=== PATIENT | male | born 1980 | race Caucasian/White ===

== ENCOUNTER 2016-10-10 21:31 | Emergency (ER) | payer MEDICAID ==
[2016-10-10 21:37] VITALS: BP 134/109; PULSE 82; RESP 16; TEMP 98.1; O2SAT 92
--- NOTE | 2016-10-10 21:50 | EDPHY ---
H & P Stated Complaint: intoxicated, elevated BGLs today (300s) HPI/ROS: HPI CHIEF COMPLAINT: Alcohol intoxication, possible high blood sugar HISTORY OF PRESENT ILLNESS: This patient 36-year-old male who presents emergency room by private vehicle with his girlfriend after was noted that he was highly intoxicated alcohol. She had a hard time waking him up. 911 was called EMS evaluated him and checked amount and advised him to go to the hospital by private vehicle as he was alert and oriented and, cooperative. In no acute medical distress. Patient presents here in emergency room states he is really know why here and he has no medical complaints. He is agreeable for blood draw to check his blood sugar and alcohol level he will be gently hydrated with IV fluids. Other than that he has no medical complaints specifically denies any generalized weakness nausea vomiting chest pain or shortness of breath, or abdominal pain. he tells me that he used to take long-acting insulin however when he does drink as much alcohol he does not need to take as much insulin he is not taking insulin a few days. Past Medical History: Alcoholism, diabetes (Not on any medication) Past Surgical History: Denies recent surgical history Social History: Daily alcohol use, alcoholism denies tobacco, marijuana or drugs, denies pills Family History: Noncontributory ROS REVIEW OF SYSTEMS: A comprehensive 10 point review of systems is otherwise negative aside from elements mentioned in the history of present illness. Exam Constitutional intoxicated with alcohol, smells of alcohol, appears well nontoxic, triage nursing summary reviewed, vital signs reviewed, awake/alert. Eyes normal conjunctivae and sclera, EOMI, PERRLA. HENT normal inspection, atraumatic, moist mucus membranes, no epistaxis, neck supple/ no meningismus, no raccoon eyes. Respiratory clear to auscultation bilaterally, normal breath sounds, no respiratory distress, no wheezing. Cardiovascular rate normal, regular rhythm, no murmur, no edema, distal pulses normal. Gastrointestinal soft, non-tender, no rebound, no guarding, normal bowel sounds, no distension, no pulsatile mass. Genitourinary no CVA tenderness. Musculoskeletal no midline vertebral tenderness, full range of motion, no calf swelling, no tenderness of extremities, no meningismus, good pulses, neurovascularly intact. Skin pink, warm, & dry, no rash, skin atraumatic. Neurologic intoxicated with alcohol, awake, alert and oriented x 3, AAOx3, moves all 4 extremities equally, motor intact, sensory intact, CN II-XII intact , normal cerebellar, normal vision, normal speech. Psychiatric normal mood/affect. Heme/Lymph/Immune no lymphadenopathy. Differential Diagnosis: Includes but is not limited to in a particular order acute alcohol intoxication, dehydration, electrolyte abnormality, hyperglycemia , DKA Medical Decision Making: Patient had an IV established patient received IV fluid bolus will check basic blood work including electrolytes and alcohol, will check blood sugar. Gently hydrate him with normal saline at this time. Re-evaluation: 2241: at this time this patient removed his IV himself he is bleeding around his IV site. Will place a dressing on this. He is requesting be discharged from the emergency room he states he does not get paperwork soon heel just walk out. He is clinically sober, he has a stable gait no ataxia, is not slurring his speech, he is here with his girlfriend will provide a safe ride home. His blood work is appropriate specifically he does not have any evidence of DKA or high blood sugar. Electrolytes are appropriate. His bicarb slightly low due to most likely alcohol. Source: Patient - Personal History Current Tetanus/Diphtheria Vaccine: Yes Current Tetanus Diphtheria and Acellular Pertussis (TDAP): Yes Tetanus Vaccine Date: 2013 - Medical/Surgical History Hx Asthma: No Hx Chronic Respiratory Disease: No Hx Diabetes: Yes Hx Cardiac Disease: No Hx Renal Disease: No Hx Cirrhosis: No Hx Alcoholism: Yes Hx HIV/AIDS: No Hx Splenectomy or Spleen Trauma: No Other PMH: neuopathy, anxiety, left toes amputated, ETOH, pancreatitis, diabetes - Social History Smoking Status: Never smoked Constitutional: Initial Vital Signs Temperature (C) 36.7 C 10/10/16 21:33 Heart Rate 82 10/10/16 21:33 Respiratory Rate 16 10/10/16 21:33 Blood Pressure 134/109 H 10/10/16 21:33 O2 Sat (%) 92 10/10/16 21:33 O2 Delivery Mode Room Air Allergies/Adverse Reactions: codeine Allergy (Mild, Verified 03/20/15 23:45) Itching Home Medications: Medication Instructions Recorded Insulin Detemir [Levemir] 12 unit SQ BID 07/08/16 LORazepam [Ativan (*)] 0.5 mg PO PRN PRN 07/08/16 Folic Acid [Folic Acid 1 MG (*)] 1 mg PO DAILY #30 tab 07/10/16 Hydroxyzine Pamoate [Vistaril] 25 - 50 mg PO Q8H PRN #30 capsule 07/10/16 Multivitamins [Multivitamin (*)] 1 each PO DAILY #30 tab 07/10/16 Sertraline HCl [Zoloft 25mg (*)] 25 mg PO DAILY #30 tab 07/10/16 Thiamine HCl [Vitamin B-1] 100 mg PO DAILY #30 tab 07/10/16 busPIRone [Buspar (*)] 5 mg PO TID #90 tab 07/10/16 Medical Decision Making - Data Points Laboratory Results: Laboratory Results 10/10/16 22:10 10/10/16 22:10 10/10/16 10/10/16 22:10 22:10 WBC 11.75 10^3/uL H 10^3/uL (3.80-9.50) RBC 4.59 10^6/uL 10^6/uL (4.40-6.38) Hgb 14.6 g/dL g/dL (13.7-17.5) Hct 41.5 % % (40.0-51.0) MCV 90.4 fL fL (81.5-99.8) MCH 31.8 pg pg (27.9-34.1) MCHC 35.2 g/dL g/dL (32.4-36.7) RDW 11.9 % % (11.5-15.2) Plt Count 316 10^3/uL 10^3/uL (150-400) MPV 9.3 fL fL (8.7-11.7) Neut % (Auto) 20.1 % L % (39.3-74.2) Lymph % (Auto) 69.5 % H % (15.0-45.0) Troup % (Auto) 6.4 % % (4.5-13.0) Eos % (Auto) 2.9 % % (0.6-7.6) Baso % (Auto) 0.8 % % (0.3-1.7) Nucleat RBC Rel Count 0.0 % % (0.0-0.2) Absolute Neuts (auto) 2.37 10^3/uL 10^3/uL (1.70-6.50) Absolute Lymphs (auto) 8.17 10^3/uL H 10^3/uL (1.00-3.00) Absolute Monos (auto) 0.75 10^3/uL 10^3/uL (0.30-0.80) Absolute Eos (auto) 0.34 10^3/uL 10^3/uL (0.03-0.40) Absolute Basos (auto) 0.09 10^3/uL 10^3/uL (0.02-0.10) Absolute Nucleated RBC 0.00 10^3/uL 10^3/uL (0-0.01) Immature Gran % 0.3 % % (0.0-1.1) Immature Gran # 0.03 10^3/uL 10^3/uL (0.00-0.10) Sodium 144 mEq/L mEq/L (134-144) Potassium 4.2 mEq/L mEq/L (3.5-5.2) Chloride 106 mEq/L mEq/L (97-110) Carbon Dioxide 21 mEq/l L mEq/l (22-31) Anion Gap 17 mEq/L H mEq/L (8-16) BUN 14 mg/dL mg/dL (7-23) Creatinine 0.8 mg/dL mg/dL (0.7-1.3) Estimated GFR > 60 Glucose 163 mg/dL H mg/dL (70-100) Calcium 9.0 mg/dL mg/dL (8.5-10.4) Ethyl Alcohol Pending Departure - Departure Disposition: Home, Routine, Self-Care Clinical Impression: Alcohol intoxication Qualifiers: Complication of substance-induced condition: uncomplicated Qualified Code(s): F10.120 - Alcohol abuse with intoxication, uncomplicated Condition: Good Instructions: Alcohol Intoxication (ED) Referrals: Naomi Rooney [Primary Care Provider] - As per Instructions
[2016-10-10] MEDS ORDERED: NS 1,000 ML IV ONE (21:54)
[2016-10-10 22:19] LABS: % IMMATURE GRANULYOCYTES 0.3 % (0.0-1.1); ABSOLUTE IMMATURE GRANULOCYTES 0.03 10^3/uL (0.00-0.10); ADD DIFF? NO; ADD MORPH? NO; ADD SCAN? YES; ATYPICAL LYMPHOCYTE FLAG 0 (0-99); FRAGMENT RBC FLAG 0 (0-99); HEMATOCRIT 41.5 % (40.0-51.0); HEMOGLOBIN 14.6 g/dL (13.7-17.5); LEFT SHIFT FLG 0 (0-99); LIPEMIA HEMOLYSIS FLAG 90 (0-99); MEAN CELL HEMOGLOBIN 31.8 pg (27.9-34.1); MEAN CELL HEMOGLOBIN CONCENTR. 35.2 g/dL (32.4-36.7); MEAN CELL VOLUME 90.4 fL (81.5-99.8); MEAN PLATELET VOLUME 9.3 fL (8.7-11.7); PLATELET CLUMPS FLAG 10 (0-99); PLATELET COUNT 316 10^3/uL (150-400); RED BLOOD CELL COUNT 4.59 10^6/uL (4.40-6.38); RED CELL DISTRIBUTION WIDTH 11.9 % (11.5-15.2)
[2016-10-10 22:34] LABS: ANION GAP 17 mEq/L (8-16); CARBON DIOXIDE 21 mEq/l (22-31); CHLORIDE 106 mEq/L (97-110); CREATININE 0.8 mg/dL (0.7-1.3); GLOMERULAR FILTRATION RATE > 60; GLUCOSE 163 mg/dL (70-100); POTASSIUM 4.2 mEq/L (3.5-5.2); SODIUM 144 mEq/L (134-144)
[2016-10-10 22:41] LABS: SCAN POSITIVE
[2016-10-10 22:45] LABS: PLATELET ESTIMATE ADEQUATE (ADEQ)
[2016-10-10 23:09] LABS: ETHANOL SERUM 352 mg/dL (0-10)
== END 2016-10-10 22:50 | disposition home or self-care (01) ==
DX: F10.120 Alcohol abuse with intoxication, uncomplicated (principal); E11.9 Type 2 diabetes mellitus without complications; Z79.4 Long term (current) use of insulin
CPT/HCPCS: G0480

== ENCOUNTER 2016-11-19 18:17 | Emergency (ER) | payer MEDICAID ==
[2016-11-19 18:28] VITALS: TEMP 98.2
--- NOTE | 2016-11-19 18:33 | EDPHY ---
H & P Time Seen by Provider: 11/19/16 18:18 HPI/ROS: Chief complaint. Decreased energy HPI. 36-year-old male here by EMS with decreased energy for 3 days. He generally feels weak and tired. He has diabetes but does not take any medication. He denies chest discomfort, shortness of breath, abdominal pain, fever, cough. He drinks alcohol every day and he has been drinking alcohol today. He was seen for similar symptoms in our emergency department several days ago ROS Constitutional. Generalized weakness Eyes. no problems with vision ENT. no sore throat, no nasal drainage Cardiovascular. no chest pain Respiratory. no shortness of breath, no cough Abdominal. no abdominal pain, no nausea/vomiting, no diarrhea . no problems urinating MS. no calf pain/swelling, no neck/back pain, no joint pain Skin. no rash Lymph. no swollen glands Neuro. no headache, no dizziness, no difficulty walking or with speech Past Medical/Surgical History: Diabetes and alcoholism Social History: Single, nonsmoker, recent alcohol Smoking Status: Never smoked Physical Exam: General Appearance: Alert well-developed male mild distress vital signs are stable Eyes: Pupils equal and round no pallor or injection. ENT, Mouth: Mucous membranes are moist. Respiratory: There are no retractions, lungs are clear to auscultation. Cardiovascular: Regular rate and rhythm. Gastrointestinal: Abdomen is soft and nontender, no masses, bowel sounds normal. Neurological: Awake and alert, sensory and motor exams grossly normal. Slight slurred speech Skin: Warm and dry, no rashes. Musculoskeletal: Neck is supple nontender. Extremities symmetrical, full range of motion. Psychiatric: Patient is oriented X 3, there is no agitation. Constitutional: Initial Vital Signs Temperature (C) 36.8 C 11/19/16 18:23 Heart Rate 86 11/19/16 18:23 Respiratory Rate 14 11/19/16 18:23 Blood Pressure 147/106 H 11/19/16 18:23 O2 Sat (%) 99 11/19/16 18:23 O2 Delivery Mode Room Air Allergies/Adverse Reactions: codeine Allergy (Mild, Verified 03/20/15 23:45) Itching Home Medications: Medication Instructions Recorded Insulin Detemir [Levemir] 12 unit SQ BID 07/08/16 LORazepam [Ativan (*)] 0.5 mg PO PRN PRN 07/08/16 Folic Acid [Folic Acid 1 MG (*)] 1 mg PO DAILY #30 tab 07/10/16 Hydroxyzine Pamoate [Vistaril] 25 - 50 mg PO Q8H PRN #30 capsule 07/10/16 Multivitamins [Multivitamin (*)] 1 each PO DAILY #30 tab 07/10/16 Sertraline HCl [Zoloft 25mg (*)] 25 mg PO DAILY #30 tab 07/10/16 Thiamine HCl [Vitamin B-1] 100 mg PO DAILY #30 tab 07/10/16 busPIRone [Buspar (*)] 5 mg PO TID #90 tab 07/10/16 Medical Decision Making Procedures: IV normal saline, monitor ED Course/Re-evaluation: On re-evaluation patient is stable. However now he complains of epigastric pain and said his pancreas is inflamed. Patient has a blood alcohol of 412. Lipase is ordered Patient's lipase is normal. Patient is asking for Percocet on re-evaluation. I explained the patient's blood alcohol is quite high and he will not be treated with pain medication especially since his lipase is normal. The patient is unable to find a sober ride to come pick him up. He will be sent to the alcohol recovery [facility] . Differential Diagnosis: I consider complications of diabetes, pancreatitis, DKA. It would appear the symptoms are all due to alcohol - Data Points Laboratory Results: Laboratory Results 11/19/16 19:40 11/19/16 19:10 11/19/16 11/19/16 11/19/16 21:20 19:40 19:40 WBC REJ RBC Not Reported Hgb Not Reported Hct Not Reported MCV Not Reported MCH Not Reported MCHC Not Reported RDW Not Reported Plt Count Not Reported MPV Not Reported Neut % (Auto) Not Reported Lymph % (Auto) Not Reported Mcdonald % (Auto) Not Reported Eos % (Auto) Not Reported Baso % (Auto) Not Reported Nucleat RBC Rel Count Not Reported Absolute Neuts (auto) Not Reported Absolute Lymphs (auto) Not Reported Absolute Monos (auto) Not Reported Absolute Eos (auto) Not Reported Absolute Basos (auto) Not Reported Absolute Nucleated RBC Not Reported Immature Gran % Not Reported Immature Gran # Not Reported Sodium Potassium Chloride Carbon Dioxide Anion Gap BUN Creatinine Estimated GFR Glucose Calcium Lipase 164.0 IU/L IU/L (23-300) Urine Opiates Screen Pending Acetaminophen Urine Barbiturates Pending Ur Phencyclidine Scrn Pending Ur Amphetamine Screen Pending U Benzodiazepines Scrn Pending Urine Cocaine Screen Pending U Marijuana (THC) Screen Pending Ethyl Alcohol 11/19/16 11/19/16 19:10 19:10 WBC REJ RBC REJ Hgb REJ Hct REJ MCV REJ MCH REJ MCHC REJ RDW REJ Plt Count REJ MPV REJ Neut % (Auto) REJ Lymph % (Auto) REJ Mcdonald % (Auto) REJ Eos % (Auto) REJ Baso % (Auto) REJ Nucleat RBC Rel Count REJ Absolute Neuts (auto) REJ Absolute Lymphs (auto) REJ Absolute Monos (auto) REJ Absolute Eos (auto) REJ Absolute Basos (auto) REJ Absolute Nucleated RBC REJ Immature Gran % REJ Immature Gran # REJ Sodium 139 mEq/L mEq/L (134-144) Potassium 3.8 mEq/L mEq/L (3.5-5.2) Chloride 97 mEq/L mEq/L (97-110) Carbon Dioxide 18 mEq/l L mEq/l (22-31) Anion Gap 24 mEq/L H mEq/L (8-16) BUN 12 mg/dL mg/dL (7-23) Creatinine 0.7 mg/dL mg/dL (0.7-1.3) Estimated GFR > 60 Glucose 151 mg/dL H mg/dL (70-100) Calcium 8.5 mg/dL mg/dL (8.5-10.4) Lipase Urine Opiates Screen Acetaminophen < 10 mcg/mL L mcg/mL (10.0-30.0) Urine Barbiturates Ur Phencyclidine Scrn Ur Amphetamine Screen U Benzodiazepines Scrn Urine Cocaine Screen U Marijuana (THC) Screen Ethyl Alcohol 412 mg/dL H* mg/dL (0-10) Departure - Departure Disposition: Home, Routine, Self-Care Condition: Fair Instructions: Abuse of Alcohol (ED) Additional Instructions: Consider alcohol counseling. Drink responsibly. Return for worsening symptoms. Referrals: Patient,NotPresent [Unknown] - As per Instructions [facility] [Outside] - 2-3 days without fail
[2016-11-19 19:36] LABS: ANION GAP 24 mEq/L (8-16); CALCIUM 8.5 mg/dL (8.5-10.4); CARBON DIOXIDE 18 mEq/l (22-31); CHLORIDE 97 mEq/L (97-110); CREATININE 0.7 mg/dL (0.7-1.3); GLOMERULAR FILTRATION RATE > 60; GLUCOSE 151 mg/dL (70-100); POTASSIUM 3.8 mEq/L (3.5-5.2); SODIUM 139 mEq/L (134-144)
[2016-11-19 19:55] LABS: ETHANOL SERUM 412 mg/dL (0-10)
[2016-11-19 20:36] LABS: ADD MORPH? NO; ATYPICAL LYMPHOCYTE FLAG 10 (0-99); FRAGMENT RBC FLAG 0 (0-99); LEFT SHIFT FLG 0 (0-99); LIPEMIA HEMOLYSIS FLAG 90 (0-99)
[2016-11-19 20:38] LABS: PLATELET CLUMPS FLAG 230 (0-99)
[2016-11-19 21:12] VITALS: BP 127/89; PULSE 95; RESP 16; O2SAT 92
== END 2016-11-19 21:35 | disposition home or self-care (01) ==
LOC: EDUNIT#
DX: F10.129 Alcohol abuse with intoxication, unspecified (principal); E11.9 Type 2 diabetes mellitus without complications; Z79.4 Long term (current) use of insulin
CPT/HCPCS: 80305; G0480

== ENCOUNTER 2016-11-21 07:26 | Emergency (ER) | payer MEDICAID ==
[2016-11-21] MEDS ORDERED: LORazepam 2 MG/ML INJ IVP ONE (07:34)
--- NOTE | 2016-11-21 07:36 | EDPHY ---
H & P Time Seen by Provider: 11/21/16 07:31 HPI/ROS: CHIEF COMPLAINT: Withdrawal HISTORY OF PRESENT ILLNESS: Patient is a 36-year-old alcoholic man who comes to the emergency department via EMS complaining of alcohol withdrawals. He states that he has been 5 days since his last drink. He typically drinks large amounts of vodka daily. He denies, ingestants. Paramedics found him tachycardic tremulous and hypertensive. They administered 2.5 mg of Versed. He is improved to some degree. No vomiting. He denies diarrhea. Denies recent fevers or illness. Denies recent trauma. REVIEW OF SYSTEMS: Constitutional: See HPI EENTM: denies: blurred vision, double vision, nose congestion Respiratory: denies: cough, shortness of breath Cardiac: denies: chest pain, irregular heart rate, lightheadedness, palpitations Gastrointestinal/Abdominal: denies: abdominal pain, diarrhea, nausea, vomiting, blood streaked stools Genitourinary: denies: dysuria, frequency, hematuria, pain Musculoskeletal: denies: joint pain, muscle pain Skin: denies: lesions, rash, jaundice, bruising Neurological: denies: headache, numbness, paresthesia, tingling, dizziness, weakness Hematologic/Lymphatic: denies: blood clots, easy bleeding, easy bruising Immunologic/allergic: denies: HIV/AIDS, transplant EXAM: GENERAL: Foul-smelling, tremulous, disheveled HEAD: Atraumatic, normocephalic. EYES: Pupils equal round and reactive to light, extraocular movements intact, sclera anicteric, conjunctiva are normal. ENT: TMs normal, nares patent, oropharynx clear without exudates. Moist mucous membranes. NECK: Normal range of motion, supple without lymphadenopathy or JVD. LUNGS: Breath sounds clear to auscultation bilaterally and equal. No wheezes rales or rhonchi. HEART: Regular rate and rhythm without murmurs, rubs or gallops. ABDOMEN: Soft, nontender, normoactive bowel sounds. No guarding, no rebound. No masses appreciated. BACK: No CVA tenderness, no spinal tenderness, step-offs or deformities EXTREMITIES: Normal range of motion, no pitting or edema. No clubbing or cyanosis. NEUROLOGICAL: tremulous,Cranial nerves II through XII grossly intact. Normal speech, normal gait. 5/5 strength, normal movement in all extremities, normal sensation PSYCH: Normal mood, normal affect. SKIN: Warm, dry, normal turgor, no visible rashes or lesions. Source: Patient Exam Limitations: No limitations - Personal History Tetanus Vaccine Date: 2013 - Medical/Surgical History Hx Asthma: No Hx Chronic Respiratory Disease: No Hx Diabetes: Yes Hx Cardiac Disease: No Hx Renal Disease: No Hx Cirrhosis: No Hx Alcoholism: Yes Hx HIV/AIDS: No Hx Splenectomy or Spleen Trauma: No Other PMH: neuopathy, anxiety, left toes amputated, ETOH, pancreatitis, diabetes - Family History Significant Family History: No pertinent family hx - Social History Smoking Status: Never smoked Alcohol Use: Heavy Drug Use: Marijuana Constitutional: Initial Vital Signs Temperature (C) 36.6 C 11/21/16 07:37 Heart Rate 107 H 11/21/16 07:37 Respiratory Rate 22 H 11/21/16 07:37 Blood Pressure 122/62 H 11/21/16 07:37 O2 Sat (%) 93 11/21/16 07:37 O2 Delivery Mode Room Air Allergies/Adverse Reactions: codeine Allergy (Mild, Verified 03/20/15 23:45) Itching Home Medications: Medication Instructions Recorded Insulin Detemir [Levemir] 12 unit SQ BID 07/08/16 LORazepam [Ativan (*)] 0.5 mg PO PRN PRN 07/08/16 Folic Acid [Folic Acid 1 MG (*)] 1 mg PO DAILY #30 tab 07/10/16 Hydroxyzine Pamoate [Vistaril] 25 - 50 mg PO Q8H PRN #30 capsule 07/10/16 Multivitamins [Multivitamin (*)] 1 each PO DAILY #30 tab 07/10/16 Sertraline HCl [Zoloft 25mg (*)] 25 mg PO DAILY #30 tab 07/10/16 Thiamine HCl [Vitamin B-1] 100 mg PO DAILY #30 tab 07/10/16 busPIRone [Buspar (*)] 5 mg PO TID #90 tab 07/10/16 Medical Decision Making ED Course/Re-evaluation: I reviewed the patient's medical record. He was here 2 days ago with an alcohol greater than 400 complaining of fatigue and lethargy. 8:15 a.m. the patient is somnolecent. He is saturating well and is not tachycardic or hypertensive. He is sedated and difficult to arouse. We will continue to observe. Will prepare for transfer to the alcohol recovery Center when more awake. 9:00 a.m. the patient is awake and alert. No tremulousness. Normal vital signs. We will transfer to the alcohol recovery Center on a Librium protocol. Differential Diagnosis: Partial list of the Differential diagnosis considered include but were not limited to; alcohol withdrawal, anxiety, substance abuse and although unlikely based on the history and physical exam, I also considered head injury, infection. - Data Points Medications Given: Discontinued Medications Chlordiazepoxide (Librium 25 Mg Prepack#6) 1 btl TAKEHOME EDNOW ONE Stop: 11/21/16 08:59 Last Admin: 11/21/16 09:09 Dose: 1 btl Lorazepam (Ativan Injection) 2 mg IVP EDNOW ONE Stop: 11/21/16 07:35 Last Admin: 11/21/16 07:47 Dose: 2 mg Departure - Departure Disposition: Home, Routine, Self-Care Clinical Impression: Alcohol dependence Qualifiers: Substance use status: in withdrawal Complication of substance-induced condition : with unspecified complication Qualified Code(s): F10.239 - Alcohol dependence with withdrawal, unspecified Condition: Fair Instructions: Alcohol Withdrawal (ED) Referrals: Patient,NotPresent [Unknown] - As per Instructions Esthela Bragg MD [Medical Doctor] - As per Instructions
[2016-11-21] MEDS ORDERED: CHLORDIAZEPOXIDE 25MG PREPK#6 BTL TAKEHOME ONE (08:58)
[2016-11-21 09:19] VITALS: BP 122/88; PULSE 86; RESP 18; TEMP 97.7; O2SAT 98
== END 2016-11-21 10:00 | disposition home or self-care (01) ==
LOC: EDUNIT#
DX: F10.239 Alcohol dependence with withdrawal, unspecified (principal); E11.9 Type 2 diabetes mellitus without complications; Z79.4 Long term (current) use of insulin
CPT/HCPCS: 96374; J2060

== ENCOUNTER 2016-11-27 20:04 | Emergency (ER) | payer MEDICAID ==
[2016-11-27 20:09] VITALS: BP 145/88; PULSE 89; RESP 20; TEMP 98.6; O2SAT 95
[2016-11-27] MEDS ORDERED: AMOXICILLIN/CLAVULANATE POT 875/125 MG TAB PO ONE (21:00)
[2016-11-27] MEDS ORDERED: IBUPROFEN 600 MG TAB PO ONE (21:01)
--- NOTE | 2016-11-27 21:01 | EDPHY ---
General Narrative: CHIEF COMPLAINT: Dental pain, concerned about infection HISTORY OF PRESENT ILLNESS: Patient complains of 2-3 days history of right- sided dental pain involving teeth numbers 2 and 3. Gradual onset. Constant duration. Auot-mr-scctuzgz pain. Worse with chewing. Improves at rest. He felt an area of fluctuance that he popped with a needle at home. He said this improved the area. He has had no fever or chills but does have ongoing pain and warmth to the right cheek. No difficulty swallowing or breathing. No soreness of the throat. No shortness of the floor of the mouth. No difficulty opening or closing his mouth. Up-to-date on his tetanus. No other associated complaints or modifying factors. He has contacted his dentist and has an appointment tomorrow. REVIEW OF SYSTEMS: Ten systems reviewed and are negative unless otherwise noted in the HPI EXAMINATION General Appearance: Alert, no distress Head: normocephalic, atraumatic Eyes: Pupils equal and round, no conjunctival pallor or injection ENT, Mouth: Mucous membranes moist. Uvula midline. No erythema or edema. No palpable fluctuance or abscess. No abnormality of the posterior pharynx. No abnormality of the floor of the mouth. No trismus. Neck: Normal inspection, supple, non-tender Respiratory: No retractions or distress. Cardiovascular: Symmetric distal pulses. Skin: Warm and dry, no rash. No erythema or warmth over the face or neck. Extremities: Nontender, no pedal edema Psychiatric: Mood and affect normal DIFFERENTIAL DIAGNOSES: Including but not limited to dental abscess, pulpitis, mucositis, infection MDM: 8:59 p.m. Dental pain of tooth 1. This is 2 days duration. No fever or chills. No evidence of abscess by examination. There is a mild pulpitis. No abnormality of the pharynx or floor of the mouth. He has declined a dental block. I will provide antibiotics for him as his primary concern is infection. He is discharged home, and he will call his dentist tomorrow Dr. Sexton. He is to follow up there or with the dental emergency center tomorrow should his pain worsen. SUPERVISION: This patient was independently evaluated without direct examination by the attending physician. Case was discussed with attending physician. - History Smoking Status: Never smoked - Objective Vital Signs: Initial Vital Signs Temperature (C) 98.6 F 11/27/16 20:07 Heart Rate 89 11/27/16 20:07 Respiratory Rate 20 11/27/16 20:07 Blood Pressure 145/88 H 11/27/16 20:07 O2 Sat (%) 95 11/27/16 20:07 O2 Delivery Mode Room Air Allergies/Adverse Reactions: codeine Allergy (Mild, Verified 11/27/16 20:06) Itching Home Medications: Medication Instructions Recorded Insulin Detemir [Levemir] 12 unit SQ BID 07/08/16 LORazepam [Ativan (*)] 0.5 mg PO PRN PRN 07/08/16 Folic Acid [Folic Acid 1 MG (*)] 1 mg PO DAILY #30 tab 07/10/16 Hydroxyzine Pamoate [Vistaril] 25 - 50 mg PO Q8H PRN #30 capsule 07/10/16 Multivitamins [Multivitamin (*)] 1 each PO DAILY #30 tab 07/10/16 Sertraline HCl [Zoloft 25mg (*)] 25 mg PO DAILY #30 tab 07/10/16 Thiamine HCl [Vitamin B-1] 100 mg PO DAILY #30 tab 07/10/16 busPIRone [Buspar (*)] 5 mg PO TID #90 tab 07/10/16 Amoxicillin/Clavulanate Pot 875 mg PO BID #20 tab 11/27/16 [Augmentin 875 MG TAB (*)] Departure - Departure Disposition: Home, Routine, Self-Care Clinical Impression: Pain, dental, Pulpitis Condition: Good Instructions: Dental Caries (ED), Toothache (ED) Additional Instructions: Follow-up with her established dentist tomorrow. Referrals: Maggie Lopez PA [Primary Care Provider] - As per Instructions Prescriptions: Amoxicillin/Clavulanate Pot [Augmentin 875 MG TAB (*)] 875 mg PO BID #20 tab
== END 2016-11-27 21:18 | disposition home or self-care (01) ==
DX: K08.89 Other specified disorders of teeth and supporting structures (principal); K04.01 Reversible pulpitis

== ENCOUNTER 2017-05-01 09:07 | Emergency (ER) | payer MEDICAID ==
[~2017-05-01 09:07] MED LIST: CEPHALEXIN 500 MG CAP PO SCH; SULFAMETHOX/TMP 800/160 MG 1 TAB PO SCH
[2017-05-01 09:22] VITALS: BP 135/99; PULSE 69; RESP 16; TEMP 97.9; O2SAT 97
--- NOTE | 2017-05-01 11:23 | EDPHY ---
H & P Time Seen by Provider: 05/01/17 10:31 HPI/ROS: CHIEF COMPLAINT: Abscess right forearm HISTORY OF PRESENT ILLNESS: 36-year-old male presents to the emergency department with an abscess to his right forearm. Patient denies any known trauma or injury. He thinks that he may have been bit by a spider. He denies IV drug abuse. His symptoms have been present for nearly 1 week. ROS: He denies substance abuse, pain in his right axilla, fever, lymphangitis. Past Medical/Surgical History: Alcoholism, sober x8 months Social History: Homeless Smoking Status: Never smoked Physical Exam: On examination patient has a large fluctuant abscess noted to the dorsal, medial aspect of his left forearm. No evidence of retained foreign body. No palpable bony tenderness. There is some surrounding redness although no lymphangitis. No left axillary lymphadenopathy. Constitutional: Initial Vital Signs Temperature (C) 36.6 C 05/01/17 09:20 Heart Rate 69 05/01/17 09:20 Respiratory Rate 16 05/01/17 09:20 Blood Pressure 135/99 H 05/01/17 09:20 O2 Sat (%) 97 05/01/17 09:20 O2 Delivery Mode Room Air Allergies/Adverse Reactions: codeine Allergy (Mild, Verified 05/01/17 09:23) Itching Home Medications: Medication Instructions Recorded Insulin Detemir [Levemir] 12 unit SQ BID 07/08/16 Cephalexin [Keflex] 500 mg PO QID #28 cap 05/01/17 Sulfamethox/Tmp 800/160 mg 1 tab PO BID #14 tab 05/01/17 [Bactrim DS] MDM/Departure - MDM Procedures: Procedure: Abscess drainage. The patient's abscess was located on the left forearm. Risks, benefits, alternatives discussed with the patient and consent obtained. The abscess was incised with a #11 blade and large amount of purulent drainage was expressed. The patient tolerated the procedure well. The procedure was performed by myself. ED Course/Re-evaluation: 36-year-old male presents with abscess to the left forearm. The abscess was incised and drained, see procedure note. He was started on Keflex and Bactrim and this was filled through the [facility]. I do not think IV antibiotics are indicated. I do not think the patient needs admission to the hospital. He declined packing and would rather try to shower and tried to soak the wound. He was given wound care precautions. He will return if he develops fever, lymphangitis, axillary lymphadenopathy, or any other concerns. - Depart Disposition: Home, Routine, Self-Care Clinical Impression: Abscess of right forearm Condition: Good Instructions: Abscess (ED) Additional Instructions: Keflex and Bactrim as directed for 1 week. Warm compresses as discussed. Apply antibiotic ointment to wound after soaking in warm water. Return to the emergency department if you developed recurring pain, swelling, fever, red streaking up your arm, pain in her right armpit, or if you feel worse in any way. Prescriptions: Cephalexin [Keflex] 500 mg PO QID #28 cap Sulfamethox/Tmp 800/160 mg [Bactrim DS] 1 tab PO BID #14 tab Referrals: Maggie Lopez PA [Primary Care Provider] - 1-2 days without fail
== END 2017-05-01 12:17 | disposition home or self-care (01) ==
PROC: 0H9DXZZ Drainage of Right Lower Arm Skin, External Approach (ICD-10-PCS; principal; 2017-05-01)
DX: L02.413 Cutaneous abscess of right upper limb (principal)

== ENCOUNTER 2017-06-09 11:40 | Inpatient (IN) | payer MEDICAID ==
--- NOTE | 2017-06-09 11:51 | EDPHY ---
H & P HPI/ROS: HPI CHIEF COMPLAINT: Nausea, vomiting, anxiety, alcohol withdrawal HISTORY OF PRESENT ILLNESS: Patient very pleasant 36-year-old male, significant past medical history for homelessness and daily alcohol use. Last drink was this morning. He presents emergency room with nausea vomiting epigastric pain chest pain and feeling he is going through withdrawals. Feels very anxious. Additionally he is diabetic. He is unsure about his blood sugar. Main complaint is alcohol withdrawal. Past Medical History: Alcoholism, alcohol withdrawal, anxiety, homelessness, diabetes Past Surgical History: Foot surgery. Social History: Homeless, daily alcohol use. Family History: Noncontributory ROS REVIEW OF SYSTEMS: A comprehensive 10 point review of systems is otherwise negative aside from elements mentioned in the history of present illness. Exam Constitutional appears unkept, triage nursing summary reviewed, vital signs reviewed, awake/alert. Eyes normal conjunctivae and sclera, EOMI, PERRLA. HENT normal inspection, atraumatic, moist mucus membranes, no epistaxis, neck supple/ no meningismus, no raccoon eyes. Respiratory clear to auscultation bilaterally, normal breath sounds, no respiratory distress, no wheezing. Cardiovascular rate normal, regular rhythm, no murmur, no edema, distal pulses normal. Gastrointestinal soft, non-tender, no rebound, no guarding, normal bowel sounds, no distension, no pulsatile mass. Genitourinary no CVA tenderness. Musculoskeletal no midline vertebral tenderness, full range of motion, no calf swelling, no tenderness of extremities, no meningismus, good pulses, neurovascularly intact. Skin pink, warm, & dry, no rash, skin atraumatic. Neurologic awake, alert and oriented x 3, AAOx3, moves all 4 extremities equally, motor intact, sensory intact, CN II-XII intact, normal cerebellar, normal vision, normal speech. Psychiatric normal mood/affect. Heme/Lymph/Immune no lymphadenopathy. Differential Diagnosis: Includes but is not limited to in a particular order acute alcohol withdrawal, dehydration, electrolyte disturbance, DKA, renal failure, anxiety. Medical Decision Making: Plan for this patient IV establishment IV fluid bolus , IV Ativan 1 mg for acute anxiety. EKG, chest x-ray, electrolytes. Check alcohol level. Re-evaluation: EKG interpretation by me on record in [facility] system. Impression time of EKG 12:03 p.m.. Sinus rhythm rate of 98. No acute ischemic changes appreciated. Unremarkable EKG. 1318: Patient's chest x-ray one view reviewed. No acute cardiopulmonary disease. 1319: This patient is blood work shows DKA. High anion gap. Low bicarb. Blood sugar over 350. Patient be started on insulin drip. He has been fluid resuscitated with 2 L at this time. Plan is for ICU admission for DKA. 1331: Patient here in DKA. Patient need to be admitted to the ICU. I have ordered an insulin drip. Patient has already received 2 L of fluid. DKA is indicated by low bicarb and anion gap over 38. Blood sugar 355. Patient has been aggressively fluid resuscitated. Patient be admitted ICU for DKA. Additionally he will need to be watch for significant alcohol withdrawal. Hospitalist service updated. Dr. Melecio Miller to admit this patient. Critical Care: Total Critical Care Time Spent Managing this Patient: 65 Minutes. This time was spent Exclusively with this patient. This Care was exclusive of procedures. The Organ System/life at risk was DKA This Patient was in Critical Condition because diabetic ketoacidosis. Source: Patient, EMS - Personal History Tetanus Vaccine Date: 2013 - Medical/Surgical History Hx Asthma: No Hx Chronic Respiratory Disease: No Hx Diabetes: Yes Hx Cardiac Disease: No Hx Renal Disease: No Hx Cirrhosis: No Hx Alcoholism: Yes Hx HIV/AIDS: No Hx Splenectomy or Spleen Trauma: No Other PMH: neuopathy, anxiety, left toes amputated, ETOH, pancreatitis, diabetes - Social History Smoking Status: Never smoked Constitutional: Initial Vital Signs Temperature (C) 37 C 06/09/17 12:05 Heart Rate 105 H 06/09/17 12:05 Respiratory Rate 22 H 06/09/17 12:05 Blood Pressure 145/98 H 06/09/17 12:05 O2 Sat (%) 93 06/09/17 12:05 O2 Delivery Mode Room Air Allergies/Adverse Reactions: codeine Allergy (Mild, Verified 05/01/17 09:23) Itching Home Medications: Medication Instructions Recorded Insulin Detemir [Levemir] 18 unit SQ BID 07/08/16 Insulin Aspart [Novolog Flexpen] 0 unit SQ DAILY@12 06/09/17 Medical Decision Making - Data Points Laboratory Results: Laboratory Results 06/09/17 12:00 06/09/17 12:00 Medications Given: Chlordiazepoxide HCl (Librium) 25 mg PO TID KAYLEIGH Stop: 12/06/17 15:59 Last Admin: 06/10/17 08:49 Dose: 25 mg Enoxaparin Sodium (Lovenox) 40 mg SC DAILY KAYLEIGH Stop: 12/07/17 08:59 Last Admin: 06/10/17 08:49 Dose: 40 mg Insulin Human Regular 100 unit / Miscellaneous Medication 1 ea/ Sodium Chloride 101 mls @ 3 mls/hr IV EDNOW ONE PRN Reason: Protocol Stop: 06/10/17 22:56 Last Admin: 06/09/17 13:57 Dose: 101 mls Dextrose (D10w) 250 mls @ 0 mls/hr IV PRN PRN; Protocol; Wide Open PRN Reason: Hypoglycemia Stop: 12/06/17 15:59 Last Admin: 06/10/17 04:34 Dose: 250 mls Dextrose/Sodium Chloride (D5w Ns) 1,000 mls @ 150 mls/hr IV CONT KAYLEIGH Stop: 12/06/17 15:59 Last Admin: 06/10/17 05:48 Dose: 1,000 mls Pantoprazole Sodium 40 mg/ (Sodium Chloride) 100 mls @ 200 mls/hr IV DAILY KAYLEIGH Stop: 12/06/17 15:59 Last Admin: 06/10/17 08:49 Dose: 100 mls Potassium Chloride (Potassium Cl 10 Meq (Premix)) 100 mls @ 100 mls/hr IV Q1H KAYLEIGH Stop: 06/10/17 10:14 Last Admin: 06/10/17 10:03 Dose: 100 mls Insulin Glargine (Lantus Syringe) 18 units SC BID KAYLEIGH Stop: 12/07/17 09:14 Last Admin: 06/10/17 09:44 Dose: 18 units Lorazepam (Ativan Injection) 0.5 - 3 mg IVP Q30M PRN PRN Reason: CIWA-Ar score greater than 15 Stop: 12/06/17 13:46 Last Admin: 06/10/17 05:15 Dose: 2 mg Sucralfate (Carafate Suspension) 1 gm PO ACHS KAYLEIGH Stop: 12/06/17 17:29 Last Admin: 06/10/17 08:49 Dose: 1 gm Discontinued Medications Sodium Chloride (Ns) 1,000 mls @ 0 mls/hr IV EDNOW ONE; Wide Open PRN Reason: Protocol Stop: 06/09/17 11:54 Last Admin: 06/09/17 11:53 Dose: 1,000 mls Sodium Chloride (Ns) 1,000 mls @ 0 mls/hr IV ONCE ONE PRN Reason: Wide Open Stop: 06/09/17 12:07 Last Admin: 06/09/17 12:19 Dose: 1,000 mls Potassium Chloride (Potassium Cl 10 Meq (Premix)) 100 mls @ 100 mls/hr IV Q1H KAYLEIGH Stop: 06/09/17 22:14 Last Admin: 06/09/17 21:33 Dose: 100 mls Magnesium Sulfate (Magnesium Sulf 2 Gm (Premix)) 50 mls @ 50 mls/hr IV ONCE ONE Stop: 06/09/17 20:48 Last Admin: 06/09/17 22:01 Dose: 50 mls Potassium Chloride (Potassium Cl 10 Meq (Premix)) 100 mls @ 100 mls/hr IV Q1H [facility]END[facility] TO [facility] Stop: 06/10/17 05:14 Last Admin: 06/10/17 03:17 Dose: 100 mls Influenza Virus Vaccine Quadrival (Fluarix Quad [id number]) 0.5 ml IM .ONCE ONE Stop: 06/10/17 09:12 Last Admin: 06/10/17 09:39 Dose: 0.5 ml Lorazepam (Ativan Injection) 1 mg IVP EDNOW ONE Stop: 06/09/17 11:54 Last Admin: 06/09/17 12:14 Dose: 1 mg Lorazepam (Ativan Injection) 1 mg IVP EDNOW ONE Stop: 06/09/17 13:36 Last Admin: 06/09/17 13:57 Dose: 1 mg Ondansetron HCl (Zofran) 4 mg IVP EDNOW ONE Stop: 06/09/17 11:54 Last Admin: 06/09/17 12:14 Dose: 4 mg Departure - Departure Disposition: [facility] Acute Clinical Impression: DKA (diabetic ketoacidoses) Qualifiers: Diabetes mellitus type: type 1 Diabetes mellitus complication detail: without coma Qualified Code(s): E10.10 - Type 1 diabetes mellitus with ketoacidosis without coma Alcohol withdrawal Qualifiers: Complication of substance-induced condition: uncomplicated Qualified Code(s): F10.230 - Alcohol dependence with withdrawal, uncomplicated Condition: Critical
[2017-06-09] MEDS ORDERED: NS 1,000 ML IV ONE ×2 (11:53→12:06)
[2017-06-09] MEDS ORDERED: LORazepam 2 MG/ML INJ IVP ONE ×2 (11:53→13:35)
[2017-06-09] MEDS ORDERED: ONDANSETRON 4 MG/2 ML VIAL IVP ONE (11:53)
--- NOTE | 2017-06-09 12:07 | CPEKG ---
Heart Rate: 98 RR Interval: 612 P-R Interval: 160 QRSD Interval: 96 QT Interval: 424 QTC Interval: 542 P [place]: 50 QRS [place]: 59 T Wave [place]: 61 EKG Severity - ABNORMAL ECG - EKG Impression: SINUS RHYTHM EKG Impression: PROLONGED QT INTERVAL Electronically Signed By: Fidencio Pearson 09-Jun-2017 15:24:55
[2017-06-09 12:15] LABS: % IMMATURE GRANULYOCYTES 0.9 % (0.0-1.1); ABSOLUTE IMMATURE GRANULOCYTES 0.06 10^3/uL (0.00-0.10); ADD DIFF? NO; ADD MORPH? NO; ADD SCAN? NO; ATYPICAL LYMPHOCYTE FLAG 20 (0-99); FRAGMENT RBC FLAG 0 (0-99); HEMATOCRIT 40.9 % (40.0-51.0); HEMOGLOBIN 15.2 g/dL (13.7-17.5); LEFT SHIFT FLG 0 (0-99); LIPEMIA HEMOLYSIS FLAG 90 (0-99); MEAN CELL HEMOGLOBIN 34.1 pg (27.9-34.1); MEAN CELL HEMOGLOBIN CONCENTR. 37.2 g/dL (32.4-36.7); MEAN CELL VOLUME 91.7 fL (81.5-99.8); PLATELET CLUMPS FLAG 0 (0-99); PLATELET COUNT 170 10^3/uL (150-400); RED BLOOD CELL COUNT 4.46 10^6/uL (4.40-6.38); RED CELL DISTRIBUTION WIDTH 11.9 % (11.5-15.2)
[2017-06-09 12:24] LABS: INR 0.9 (0.83-1.16)
[2017-06-09 12:25] LABS: APTT 22.8 SEC (23.0-38.0)
--- NOTE | 2017-06-09 12:25 | ASMTCMCOM ---
CM Note CM Note Notes: Patient presents to ER with confusion and ETOH withdrawal. I have met with patient to discuss resources and plans for the upcoming winter. Patient has long history of alcoholism, homelessness, and diagnosis of diabetes within the past couple of years. Patient admits to staying at the [facility] "from tme to time" but was not aware of the [facility] program. I have provided patient with information for this program, including the time and location that he can present to this evening to secure a bed for the night I have called the [facility] and for Maggie BAKER re patient's visit to the ER today. Patient tells me that he has been to the clinic within the past couple of months for insulin. I have encouraged him to follow up there tomorrow Date Signed: 06/09/2017 12:25 PM Electronically Signed By:Carey Pablo RN
[2017-06-09 12:37] LABS: ALANINE AMINOTRANSFERASE 166 IU/L (21-72); ALBUMIN 5.1 g/dL (3.5-5.0); ALKALINE PHOSPHATASE 182 IU/L (38-126); ANION GAP 38 mEq/L (8-16); ASPARTATE AMINOTRANSFERASE 147 IU/L (17-59); BILIRUBIN,TOTAL 2.2 mg/dL (0.1-1.4); BILIRUBIN-CONJUGATED 0.8 mg/dL (0.0-0.5); BILIRUBIN-UNCONJUGATED 1.4 mg/dL (0.0-1.1); CALCIUM 9.4 mg/dL (8.5-10.4); CHLORIDE 83 mEq/L (97-110); CREATININE 0.7 mg/dL (0.7-1.3); ETHANOL SERUM 27 mg/dL (0-10); GLOMERULAR FILTRATION RATE > 60; GLUCOSE 355 mg/dL (70-100); MAGNESIUM 1.4 mg/dL (1.6-2.3); POTASSIUM 3.8 mEq/L (3.5-5.2); SODIUM 130 mEq/L (134-144); TOTAL PROTEIN 7.8 g/dL (6.3-8.2)
[2017-06-09 12:44] LABS: CARBON DIOXIDE 9 mEq/l (22-31)
[2017-06-09 12:49] LABS: CREATINE KINASE-MB FRACTION 2.73 ng/mL (0.00-3.19); TROPONIN I < 0.012 ng/mL (0.000-0.034)
[2017-06-09] MEDS ORDERED: INSULIN REGULAR HUMAN 100 UNIT, COSIGN. REQUIRED 1 EA in NS 100 ML IV ONE (13:17)
[2017-06-09 13:40] LABS: COLOR YELLOW; LEUKOCYTE ESTERASE,URINE NEGATIVE (NEGATIVE); NITRITE,URINE NEGATIVE (NEGATIVE)
[2017-06-09] MEDS ORDERED: PROMETHAZINE HCL 25 MG/ML INJ IVP PRN (13:44)
[2017-06-09] MEDS ORDERED: PROMETHAZINE HCL 25 MG TAB PO PRN (13:44)
[2017-06-09] MEDS ORDERED: ONDANSETRON DISINTEGRATING 4 MG TAB PO PRN (13:44)
[2017-06-09] MEDS ORDERED: ONDANSETRON 4 MG/2 ML VIAL IVP PRN (13:44)
[2017-06-09] MEDS ORDERED: NS 1,000 ML IV SCH (13:45)
[2017-06-09] MEDS ORDERED: LORazepam 1 MG TAB PO PRN (13:47)
[2017-06-09 13:48] LABS: MUCUS TRACE /lpf (NONE-1+)
[2017-06-09] MEDS ORDERED: INSULIN REGULAR HUMAN 100 UNIT in NS 100 ML IV SCH ×2 (14:00→15:41)
[2017-06-09] MEDS ORDERED: INSULIN REGULAR HUMAN 100 UNIT/ML IVP PRN (15:41)
[2017-06-09] MEDS: LORazepam 2 MG/ML INJ IVP PRN (15:43)
[2017-06-09] MEDS ORDERED: PROTOCOL POTASSIUM 1 DOSE MISC PRN (15:45)
[2017-06-09] MEDS ORDERED: PROTOCOL MAGNESIUM 1 DOSE IV PRN (15:45)
[2017-06-09] MEDS ORDERED: CALCIUM CARBONATE 500 MG CHEWABLE TAB PO PRN (15:53)
[2017-06-09] MEDS ORDERED: MAG HYDROX/AL HYDROX/SIMETH 30 ML UDCUP PO PRN (15:53)
--- NOTE | 2017-06-09 15:58 | PDGENHP ---
History and Physical - Chief Complaint Acute chest pain - History of Present Illness Primary care provider: [facility] HPI: 36-year-old male presenting with acute chest pain characterized as a burning, pressure sensation located in his substernal area and mid epigastric, with associated nausea, 1 episode of vomiting, anxiety and possible seizure prior to presentation. He reports the onset of symptoms 1 day prior, and duration intermittent thereafter. He reports he has continued to consume alcohol, but he has had to cut back somewhat secondary to discomfort exacerbated by oral intake. The patient believes that he may have had a seizure on the day prior to this presentation, when he began to feel unusual with a strange taste in his mouth, awoke on the floor, and had urinary incontinence. He is otherwise unable to fully elaborate on other symptoms and unable to fully characterize what his living situation and life looked like prior to his onset of symptoms. He does report that he has been prescribed metformin and insulin, but he has not been taking either these recently. History Information - Allergies/Home Medication List Allergies/Adverse Reactions: codeine Allergy (Mild, Verified 05/01/17 09:23) Itching Home Medications: Insulin Detemir [Levemir] 18 unit SQ BID 07/08/16 [Last Taken 07/08/16 10:00] Insulin Aspart [Novolog Flexpen] 0 unit SQ DAILY@12 06/09/17 [Last Taken Unknown ] I have personally reviewed and updated: family history, medical history, social history, surgical history - Past Medical History Additional medical history: Chronic pancreatitis with recent diagnosis of diabetes and initiation on Levemir at [facility] ; anxiety disorder but not presently treated by any mental health provider ; frostbite - Surgical History Additional surgical history: amputation of several toes - Family History Additional family history: history of substance abuse issues but no particular mental health issues clearly identified - Social History Smoking Status: Never smoked Alcohol Use: Heavy Drug Use: None Additional social history: he has previously been described as homeless but it is unclear what his present living situation is Review of Systems Review of Systems: ROS: 10pt was reviewed & negative except for what was stated in HPI & below Cardiac: Reports: chest pain Gastrointestinal: Reports: vomitting, abdominal pain, nausea Neurological: Reports: other (Tremulousness, possible seizure) Physical Exam Physical Exam: Temp Pulse Resp BP Pulse Ox 37 C 101 H 20 157/109 H 98 06/09/17 12:05 06/09/17 14:13 06/09/17 14:13 06/09/17 14:13 06/09/17 14:13 Constitutional: chronically ill appearing, uncomfortable, unkempt Eyes: PERRL, anicteric sclera, EOMI Ears, Nose, Mouth, Throat: moist mucous membranes, hearing normal, ears appear normal, no oral mucosal ulcers Cardiovascular: tachycardia, No systolic murmur, No irregularly irregular, No edema Respiratory: reduced air movement (Slightly reduced on inspiration and expiration), No expiratory wheeze, No inspiratory crackles, No bronchial breath sounds, No respiratory distress Gastrointestinal: normoactive bowel sounds, tenderness (Midepigastric area), No guarding, No distension Genitourinary: no bladder fullness, no bladder tenderness Skin: other (Vitiligo over the right shoulder, no rashes over the abdomen) Neurologic: AAOx3, asterixes (Mild), other (Bilateral upper extremity tremulousness) Psychiatric: anxious, other (Cooperative and follows commands, some of his speech is somewhat tangential and in coherent, but he is redirectable), No agitated Lab Data & Imaging Review 06/09/17 12:00 06/09/17 12:00 WBC 6.74 10^3/uL (3.80-9.50) 06/09/17 12:00 RBC 4.46 10^6/uL (4.40-6.38) 06/09/17 12:00 Hgb 15.2 g/dL (13.7-17.5) 06/09/17 12:00 POC Hgb 13.9 gm/dL (13.7-17.5) 06/09/17 15:15 Hct 40.9 % (40.0-51.0) 06/09/17 12:00 POC Hct 41 % (40-51) 06/09/17 15:15 MCV 91.7 fL (81.5-99.8) 06/09/17 12:00 MCH 34.1 pg (27.9-34.1) 06/09/17 12:00 MCHC 37.2 g/dL (32.4-36.7) H 06/09/17 12:00 RDW 11.9 % (11.5-15.2) 06/09/17 12:00 Plt Count 170 10^3/uL (150-400) 06/09/17 12:00 MPV 10.0 fL (8.7-11.7) 06/09/17 12:00 Neut % (Auto) 72.4 % (39.3-74.2) 06/09/17 12:00 Lymph % (Auto) 16.9 % (15.0-45.0) 06/09/17 12:00 [place] % (Auto) 8.9 % (4.5-13.0) 06/09/17 12:00 Eos % (Auto) 0.0 % (0.6-7.6) L 06/09/17 12:00 Baso % (Auto) 0.9 % (0.3-1.7) 06/09/17 12:00 Nucleat RBC Rel Count 0.0 % (0.0-0.2) 06/09/17 12:00 Absolute Neuts (auto) 4.88 10^3/uL (1.70-6.50) 06/09/17 12:00 Absolute Lymphs (auto) 1.14 10^3/uL (1.00-3.00) 06/09/17 12:00 Absolute Monos (auto) 0.60 10^3/uL (0.30-0.80) 06/09/17 12:00 Absolute Eos (auto) 0.00 10^3/uL (0.03-0.40) L 06/09/17 12:00 Absolute Basos (auto) 0.06 10^3/uL (0.02-0.10) 06/09/17 12:00 Absolute Nucleated RBC 0.00 10^3/uL (0-0.01) 06/09/17 12:00 Immature Gran % 0.9 % (0.0-1.1) 06/09/17 12:00 Immature Gran # 0.06 10^3/uL (0.00-0.10) 06/09/17 12:00 PT 12.0 SEC (12.0-15.0) 06/09/17 12:00 INR 0.90 (0.83-1.16) 06/09/17 12:00 APTT 22.8 SEC (23.0-38.0) L 06/09/17 12:00 POC Sodium 129 mEq/L (134-144) L 06/09/17 15:15 Sodium 130 mEq/L (134-144) L 06/09/17 12:00 POC Potassium 4.0 mEq/L (3.3-5.0) 06/09/17 15:15 Potassium 3.8 mEq/L (3.5-5.2) 06/09/17 12:00 POC Chloride 94 mEq/L (97-110) L 06/09/17 15:15 Chloride 83 mEq/L (97-110) L 06/09/17 12:00 Carbon Dioxide 9 mEq/l (22-31) L* 06/09/17 12:00 Anion Gap 38 mEq/L (8-16) H 06/09/17 12:00 POC BUN 10 mg/dL (7-23) 06/09/17 15:15 BUN 10 mg/dL (7-23) 06/09/17 12:00 Creatinine 0.7 mg/dL (0.7-1.3) 06/09/17 12:00 POC Creatinine 0.6 mg/dL (0.7-1.3) L D 06/09/17 15:15 Estimated GFR > 60 06/09/17 12:00 Glucose 355 mg/dL (70-100) H 06/09/17 12:00 POC Glucose 225 mg/dL (70-100) H 06/09/17 15:15 Calcium 9.4 mg/dL (8.5-10.4) 06/09/17 12:00 Magnesium 1.4 mg/dL (1.6-2.3) L 06/09/17 12:00 Total Bilirubin 2.2 mg/dL (0.1-1.4) H 06/09/17 12:00 Conjugated Bilirubin 0.8 mg/dL (0.0-0.5) H 06/09/17 12:00 Unconjugated Bilirubin 1.4 mg/dL (0.0-1.1) H 06/09/17 12:00 AST 147 IU/L (17-59) H 06/09/17 12:00 ALT 166 IU/L (21-72) H 06/09/17 12:00 Alkaline Phosphatase 182 IU/L (38-126) H 06/09/17 12:00 Creatine Kinase 155 IU/L (0-224) 06/09/17 12:00 CK-MB (CK-2) Fraction 2.73 ng/mL (0.00-3.19) 06/09/17 12:00 Troponin I < 0.012 ng/mL (0.000-0.034) 06/09/17 12:00 Total Protein 7.8 g/dL (6.3-8.2) 06/09/17 12:00 Albumin 5.1 g/dL (3.5-5.0) H 06/09/17 12:00 Lipase 76 IU/L (23-300) 06/09/17 12:00 Urine Color YELLOW 06/09/17 13:30 Urine Appearance CLEAR 06/09/17 13:30 Urine pH 5.0 (5.0-7.5) 06/09/17 13:30 Ur Specific [place] 1.029 (1.002-1.030) 06/09/17 13:30 Urine Protein 2+ (NEGATIVE) H 06/09/17 13:30 Urine Ketones 2+ (NEGATIVE) H 06/09/17 13:30 Urine Blood 1+ (NEGATIVE) H 06/09/17 13:30 Urine Nitrate NEGATIVE (NEGATIVE) 06/09/17 13:30 Urine Bilirubin NEGATIVE (NEGATIVE) 06/09/17 13:30 Urine Urobilinogen NEGATIVE EU (0.2-1.0) 06/09/17 13:30 Ur Leukocyte Esterase NEGATIVE (NEGATIVE) 06/09/17 13:30 Urine RBC 1-3 /hpf (0-3) 06/09/17 13:30 Urine WBC 1-3 /hpf (0-3) 06/09/17 13:30 Ur Epithelial Cells TRACE /lpf (NONE-1+) 06/09/17 13:30 Hyaline Casts 1-5 /lpf (0-1) 06/09/17 13:30 Urine Mucus TRACE /lpf (NONE-1+) 06/09/17 13:30 Urine Glucose 3+ (NEGATIVE) H 06/09/17 13:30 Urine Opiates Screen NEGATIVE (NEGATIVE) 06/09/17 13:30 Urine Barbiturates NEGATIVE (NEGATIVE) 06/09/17 13:30 Ur Phencyclidine Scrn NEGATIVE (NEGATIVE) 06/09/17 13:30 Ur Amphetamine Screen NEGATIVE (NEGATIVE) 06/09/17 13:30 U Benzodiazepines Scrn NEGATIVE (NEGATIVE) 06/09/17 13:30 Urine Cocaine Screen NEGATIVE (NEGATIVE) 06/09/17 13:30 U Marijuana (THC) Screen NEGATIVE (NEGATIVE) 06/09/17 13:30 Ethyl Alcohol 27 mg/dL (0-10) H 06/09/17 12:00 Visualized and Interpreted Chest x-ray results: Yes Chest X-Ray results: no infiltrate, other (Faint interstitial prominence) Visualized and Interpreted EKG results: Yes EKG Interpretation: Positive for: other (Normal sinus rhythm with QT interval around 500) Assessment & Plan Assessment: 36-year-old male presenting with acute diabetic ketoacidosis and acute alcohol withdrawal Plan: 1. Diabetic ketoacidosis. Acute, severe, with serum bicarbonate level 9, anion gap 38, glucose level 355, potentially provoked by non adherence to home dosage of insulin, may have also been provoked by either alcohol withdrawal, alcoholic hepatitis, acute coronary syndrome, respiratory virus -received 2L NS in ED, cont on insulin gtt w/ DKA protocol -cont on D5NS at 150cc/hr -repeat labs now, with PCT to eval for infxn 2. Chest pain. Acute, likely 2/2 gastritis in setting of alcohol abuse, r/o ACS/ VTE -repeat trop now and in AM, for chest pain -get dimer -get RVP -give maalox/tums PRN, scheduled PPI and carafate, gauge effect 3. Hyponatremia. Acute, likely 2/2 hypovolemia and hyperglycemia, cont to monitor, on NS solution 4. Acute alcohol withdraw. Severe, high risk of seizure given reports of seizure STUDY LEAD and ongoing signs of w/d -CIWA -place on scheduled librium for next 24hrs w/ PRN ativan, wean librium over next 48hrs -reviewed outside records including 07/10/[address] Mariajose James, reports DKA w/ encephalopathy and withdraw requiring precedex/librium, also started on zoloft/buspar/vistaril for strong anxiety component, but patient has not continued these medications 5. Metabolic Acidosis. 2/2 DKA, cont to monitor 6. Transaminitis. Acute, likely 2/2 alcoholic hepatitis, get liver US and monitor LFTs -pain Rx as needed 7. DM1. At discharge, patient will require meds and coordination w/ [facility] to ensure availability Diet. NPO, adv to ADA when tolerates Code. Full PPx. High risk, on lovenox 40 Dispo. ADD uncertain, anticipated LOS > 48hrs for reasonable medical necessity including DKA w/ high risk co-morbid alcohol withdraw 50 minutes of critical care time spent with patient, at bedside, addressing issues outlined above. He remains critically ill w/ high risk worsening morbidity/mortality.
[2017-06-09] MEDS ORDERED: D10W 250 ML PRN HYPOGLYCEMIA IV (16:00)
--- NOTE | 2017-06-09 16:24 | PDMN ---
Medical Necessity Medical necessity: C/M review: est. > 2 MN LOS for eval and TX of acute: severe DKA, chest pain, hyponatremia, alcohol withdrawal, metabolic acidosis, transaminitis, requiring ongoing NPO, Regular Human Insulin infusion, IV fluids , cardiac monitoring, CIWA protocol in ICU, comorbid recent diagnosis of type I diabetes, anxiety disorder per H/P.
[2017-06-09] MEDS: PANTOPRAZOLE SODIUM 40 MG in NS 100 ML IV SCH (16:27)
[2017-06-09] MEDS: chlordiazePOXIDE 25 MG CAP PO SCH ×2 (16:32→22:01)
[2017-06-09 17:15] LABS: ANION GAP 18 mEq/L (8-16); CALCIUM 8.3 mg/dL (8.5-10.4); CARBON DIOXIDE 20 mEq/l (22-31); CHLORIDE 97 mEq/L (97-110); CREATININE 0.6 mg/dL (0.7-1.3); GLOMERULAR FILTRATION RATE > 60; GLUCOSE 132 mg/dL (70-100); POTASSIUM 3.1 mEq/L (3.5-5.2); SODIUM 135 mEq/L (134-144)
[2017-06-09 17:25] LABS: TROPONIN I < 0.012 ng/mL (0.000-0.034)
[2017-06-09] MEDS: SUCRALFATE 1 GM/10 ML UDCUP PO SCH ×2 (17:28→22:01)
[2017-06-09 17:36] LABS: PROCALCITONIN 0.27 ng/mL (0.02-0.10)
[2017-06-09] MEDS ORDERED: POTASSIUM Cl (KCl) 10 MEQ/100 ML BAG IV ONE (18:15)
[2017-06-09] MEDS: POTASSIUM Cl (KCl) 100 ML IV SCH ×4 (18:17→21:33)
[2017-06-09] MEDS ORDERED: MAGNESIUM SULF 2 GM/WATER 50 ML IV ONE (19:49)
[2017-06-09 19:57] LABS: ANION GAP 16 mEq/L (8-16); CALCIUM 8.9 mg/dL (8.5-10.4); CARBON DIOXIDE 21 mEq/l (22-31); CHLORIDE 95 mEq/L (97-110); CREATININE 0.7 mg/dL (0.7-1.3); GLOMERULAR FILTRATION RATE > 60; GLUCOSE 76 mg/dL (70-100); POTASSIUM 3.4 mEq/L (3.5-5.2); SODIUM 132 mEq/L (134-144)
[2017-06-09] MEDS: D5W NS 1,000 ML IV SCH (20:46)
[2017-06-10 01:15] LABS: ANION GAP 12 mEq/L (8-16); CALCIUM 8.9 mg/dL (8.5-10.4); CARBON DIOXIDE 23 mEq/l (22-31); CHLORIDE 98 mEq/L (97-110); CREATININE 0.7 mg/dL (0.7-1.3); GLOMERULAR FILTRATION RATE > 60; GLUCOSE 152 mg/dL (70-100); POTASSIUM 3.6 mEq/L (3.5-5.2); SODIUM 133 mEq/L (134-144)
[2017-06-10] MEDS: POTASSIUM Cl (KCl) 100 ML IV SCH ×9 (02:14→15:08)
[2017-06-10 02:23] LABS: HEMOGLOBIN A1C 10.5 % (4.0-6.0)
[2017-06-10] MEDS: LORazepam 2 MG/ML INJ IVP PRN ×2 (05:15→21:42)
[2017-06-10 05:27] LABS: % IMMATURE GRANULYOCYTES 0.3 % (0.0-1.1); ABSOLUTE IMMATURE GRANULOCYTES 0.02 10^3/uL (0.00-0.10); ADD DIFF? NO; ADD MORPH? NO; ADD SCAN? NO; ATYPICAL LYMPHOCYTE FLAG 10 (0-99); FRAGMENT RBC FLAG 0 (0-99); HEMATOCRIT 35.3 % (40.0-51.0); HEMOGLOBIN 12.5 g/dL (13.7-17.5); LEFT SHIFT FLG 0 (0-99); LIPEMIA HEMOLYSIS FLAG 90 (0-99); MEAN CELL HEMOGLOBIN 33.7 pg (27.9-34.1); MEAN CELL HEMOGLOBIN CONCENTR. 35.4 g/dL (32.4-36.7); MEAN CELL VOLUME 95.1 fL (81.5-99.8); MEAN PLATELET VOLUME 10.2 fL (8.7-11.7); PLATELET CLUMPS FLAG 0 (0-99); PLATELET COUNT 109 10^3/uL (150-400); RED BLOOD CELL COUNT 3.71 10^6/uL (4.40-6.38)
[2017-06-10 05:47] LABS: ALANINE AMINOTRANSFERASE 110 IU/L (21-72); ALBUMIN 3.2 g/dL (3.5-5.0); ALKALINE PHOSPHATASE 136 IU/L (38-126); ANION GAP 11 mEq/L (8-16); ASPARTATE AMINOTRANSFERASE 111 IU/L (17-59); BILIRUBIN,TOTAL 1.9 mg/dL (0.1-1.4); CALCIUM 8.5 mg/dL (8.5-10.4); CARBON DIOXIDE 24 mEq/l (22-31); CHLORIDE 97 mEq/L (97-110); CREATININE 0.7 mg/dL (0.7-1.3); GLOMERULAR FILTRATION RATE > 60; GLUCOSE 213 mg/dL (70-100); SODIUM 132 mEq/L (134-144); TOTAL PROTEIN 5.4 g/dL (6.3-8.2)
[2017-06-10 05:48] LABS: POTASSIUM 3.2 mEq/L (3.5-5.2)
[2017-06-10] MEDS: D5W NS 1,000 ML IV SCH (05:48)
[2017-06-10 05:53] LABS: TROPONIN I < 0.012 ng/mL (0.000-0.034)
[2017-06-10] MEDS: SUCRALFATE 1 GM/10 ML UDCUP PO SCH ×4 (08:49→20:50)
[2017-06-10] MEDS: PANTOPRAZOLE SODIUM 40 MG in NS 100 ML IV SCH (08:49)
[2017-06-10] MEDS: ENOXAPARIN 40 MG/0.4 ML SYR SC SCH (08:49)
[2017-06-10] MEDS: chlordiazePOXIDE 25 MG CAP PO SCH ×3 (08:49→21:42)
[2017-06-10] MEDS ORDERED: FLU VACC QS 2017-18 (3YR+)/PF 0.5 ML SYR (FLUARIX QUAD) IM ONE (09:11)
[2017-06-10] MEDS: INSULIN GLARGINE 100 UNITS/ML SYRINGE SC SCH ×2 (09:44→21:25)
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
--- NOTE | 2017-06-10 10:26 | HOSPPROG ---
Hospitalist Progress Note Assessment/Plan: DIAGNOSES: -acute DKA -acute EtOH withdrawal -chest pain syndrome w nausea, in a chronic diabetes pt -hx of pancreatitis -elevated ALT and hx of drug abuse, need to check for Hep B&C -alcoholism; needs counseling, thiamine; is engaged with mental health services PLANS: -is able to come off insulin drip at present -will start sub Q ins, diabetic diet, and follow closely -check troponin -thiamine replacement -dvt proph -continue CIWA monitoring with treatment of WD sxs -hep B&C serologies SUBJ: feels a lot better, still w some nausea currently no chest pain no fever sxs mildly anxious at moment OBJ: vitals stable without fever card monitor: NSR CIWA: 16-26 on meds exam: alert oriented mildly anxious very mild tremor at present after benzos, has been more severe skin warm dry no jaundice no jvd lungs few scattered rhonchi heart reg no edema abd soft nondistended nontender labs: first troponin nl elevated liver enzymes with ALT>AST ekg from ER, i reviewed tracing: nsr nothing ischemic abd US, my review of images: liver enlarged and w changes c/w steatosis, no stones seen Objective: Vital Signs Temp Pulse Resp BP Pulse Ox 37 C 69 12 108/74 95 06/10/17 10:00 06/10/17 10:00 06/10/17 10:00 06/10/17 10:00 06/10/17 10:00 Laboratory Results 06/10/17 05:15 06/10/17 05:15 06/09/17 06/10/17 06/11/17 06:59 06:59 06:59 Intake Total 7227 757 Output Total 1725 Balance 5502 757 PT 12.0 SEC (12.0-15.0) 06/09/17 12:00 INR 0.90 (0.83-1.16) 06/09/17 12:00 - Time Spent With Patient Time Spent with Patient: greater than 35 minutes Time Spent with Patient: Greater than 35 minutes spent on this patients care, greater than 50% of time spent counseling, educating, and coordinating care regarding the above mentioned plan. ICD10 Worksheet Patient Problems: Problems Problem Status Onset Alcohol withdrawal Acute DKA (diabetic ketoacidoses) Acute Frostbite of foot Acute High anion gap metabolic acidosis Acute Isopropyl alcohol poisoning Acute MRSA (methicillin resistant staph aureus) culture positive Acute 10/07/13 Metabolic acidosis due to ethylene glycol Acute Metabolic acidosis due to methanol Acute Pancreatitis Acute
--- NOTE | 2017-06-10 11:21 | ASMTCMCOM ---
CM Note CM Note Notes: Message from Maggie Lucio, PCP [phone] Pt is high utilize and PCP would like to coordinate to assist with management of care Date Signed: 06/10/2017 11:20 AM Electronically Signed By:Chris Levin LCSW
--- NOTE | 2017-06-10 12:40 | ASMTCMCOM ---
CM Note CM Note Notes: Patient in W/D needs clothes- received from our loan closet. Asked if he was familiar with ETOH tx resources in [place]-he named what was available in the [facility]. Patient may be here until Saturday, need to arrange for him to see his PCP on discharge, Maggie Floresemmy [phone]. Will wait to make an appointment until we have a better discharge date. Date Signed: 06/10/2017 12:39 PM Electronically Signed By:Chantal Nieto LCSW
[2017-06-10 12:46] LABS: GLUCOSE 294 mg/dL (70-100); POTASSIUM 3.7 mEq/L (3.5-5.2)
[2017-06-10] MEDS: INSULIN LISPRO 100 UNIT/ML SC SCH ×2 (12:51→18:02)
[2017-06-10 12:58] LABS: TROPONIN I < 0.012 ng/mL (0.000-0.034)
[2017-06-10 18:42] LABS: POTASSIUM 3.2 mEq/L (3.5-5.2)
[2017-06-10] MEDS ORDERED: PROTOCOL POTASSIUM 1 DOSE MISC PRN (19:55)
[2017-06-10] MEDS ORDERED: POTASSIUM CL 10 MEQ TAB PO ONE (19:58)
[2017-06-10] MEDS: LOPERAMIDE HCL 2 MG CAP PO PRN (22:25)
[2017-06-11 00:34] LABS: POTASSIUM 3.1 mEq/L (3.5-5.2)
[2017-06-11] MEDS ORDERED: POTASSIUM CL 10 MEQ TAB PO ONE ×2 (00:45→08:17)
[2017-06-11] MEDS: LOPERAMIDE HCL 2 MG CAP PO PRN (01:47)
[2017-06-11 06:33] LABS: ALANINE AMINOTRANSFERASE 137 IU/L (21-72); ALBUMIN 2.7 g/dL (3.5-5.0); ALKALINE PHOSPHATASE 116 IU/L (38-126); ANION GAP 13 mEq/L (8-16); ASPARTATE AMINOTRANSFERASE 213 IU/L (17-59); BILIRUBIN,TOTAL 1.9 mg/dL (0.1-1.4); CALCIUM 8.9 mg/dL (8.5-10.4); CARBON DIOXIDE 28 mEq/l (22-31); CHLORIDE 96 mEq/L (97-110); CREATININE 0.6 mg/dL (0.7-1.3); GLOMERULAR FILTRATION RATE > 60; GLUCOSE 225 mg/dL (70-100); MAGNESIUM 1.8 mg/dL (1.6-2.3); POTASSIUM 3.4 mEq/L (3.5-5.2); SODIUM 137 mEq/L (134-144); TOTAL PROTEIN 4.8 g/dL (6.3-8.2)
[2017-06-11 07:41] VITALS: O2SAT 96
[2017-06-11] MEDS: ENOXAPARIN 40 MG/0.4 ML SYR SC SCH (08:01)
[2017-06-11] MEDS: SUCRALFATE 1 GM/10 ML UDCUP PO SCH ×2 (08:02→13:02)
[2017-06-11] MEDS: chlordiazePOXIDE 25 MG CAP PO SCH (08:02)
[2017-06-11] MEDS: INSULIN LISPRO 100 UNIT/ML SC SCH ×2 (08:03→12:13)
[2017-06-11] MEDS: INSULIN GLARGINE 100 UNITS/ML SYRINGE SC SCH (08:04)
[2017-06-11] MEDS: PANTOPRAZOLE SODIUM 40 MG in NS 100 ML IV SCH (08:04)
[2017-06-11] MEDS ORDERED: PANTOPRAZOLE SODIUM 40 MG TAB PO SCH (09:00)
[2017-06-11] MEDS ORDERED: MAGNESIUM SULF 1 GM/DEXTROSE 100 ML IV ONE (09:40)
--- NOTE | 2017-06-11 09:43 | PDINTPN ---
[facility] Progress Note Assessment/Plan: Assessment/plan: * Diabetic ketoacidosis-resolved * Alcohol withdrawals-CIWA score down to 2 * Insulin-dependent diabetes * PT/OT * Out of bed to chair * Disposition-either transfer to medical surgical floor or discharge home. Subjective: Resting comfortably in bed. Awake and alert and oriented x3. No current complaints. Objective: Vital Signs Temp Pulse Resp BP Pulse Ox 36.8 C 66 16 117/71 96 06/11/17 07:39 06/11/17 07:39 06/11/17 07:39 06/11/17 07:39 06/11/17 07:39 Laboratory Results 06/10/17 05:15 06/11/17 05:55 06/10/17 06/11/17 06/12/17 05:59 05:59 05:59 Intake Total 7227 5452 Output Total 1725 1 Balance 5502 5451 PT 12.0 SEC (12.0-15.0) 06/09/17 12:00 INR 0.90 (0.83-1.16) 06/09/17 12:00 Physical Exam - Physical Exam General Appearance: WD/WN, alert, no apparent distress EENT: PERRL/EOMI Neck: non-tender, full range of motion, supple Respiratory: chest non-tender, lungs clear, normal breath sounds Cardiac/Chest: normal peripheral pulses, regular rate, rhythm Peripheral Pulses: 2+: carotid (R), carotid (L), femoral (R), femoral (L), dorsalis-pedis (R), dorsalis-pedis (L) Abdomen: normal bowel sounds, non-tender, soft Male Genitalia: deferred Rectal: deferred Skin: normal color, warm/dry Extremities: normal range of motion, non-tender, normal inspection, normal capillary refill ICD10 Worksheet Patient Problems: Problems Problem Status Onset Alcohol withdrawal Acute DKA (diabetic ketoacidoses) Acute Frostbite of foot Acute High anion gap metabolic acidosis Acute Isopropyl alcohol poisoning Acute MRSA (methicillin resistant staph aureus) culture positive Acute 10/07/13 Metabolic acidosis due to ethylene glycol Acute Metabolic acidosis due to methanol Acute Pancreatitis Acute
[2017-06-11 11:55] VITALS: BP 122/89; PULSE 81; RESP 18; TEMP 98.6
--- NOTE | 2017-06-11 12:34 | PDDCSUM ---
Discharge Summary Discharge Summary: DIAGNOSES: -acute DKA -acute alcohol withdrawal -alcoholism -noncompliance with insulin use -mild alcoholic hepatitis CONSULTS: Dr Abdoulaye Greene HOSPITAL COURSE: This patient who has DM1 and recurrent dka, along with alcoholism, has been noncompliant with insulin. He came in due to chest complaints (ruled out for [place] with somewhat nonspecific pain as described to me). He was found to be both in acute DKA and acute alcohol withdrawal. He was treated for both with out standard icu protocols and responded quite rapidly. He did not have any complications of either illness. We were able to get him back to sq insulin with good sugar control, and he regained appetite, ate easily. He is up walking in halls. No cardiac symptoms or findings here. No other acute issues developed. He is now stable for DC. I did spend considerable time counseling with him each day regarding the impacts of etoh on his life overall and his physical health. He would like to quit, is engaged with [facility], and in fact was supposed to be on a bus to go to [facility](?) for rehab in past few days, thinks he probably missed on this due to illness. I strongly encouraged him to continue to engage all the help he can to get away from alcohol. MEDICATION CHANGES: protonix 40 mg daily added immodium added strongly encouraged to do all he can to continue on insulin as prescribed and keep ongoing f/u care FOLLOW UP: with his fire safety inspector in 1-2 weeks with his mental health care givers as previously arranged
--- NOTE | 2017-06-11 17:44 | ASMTCMCOM ---
CM Note CM Note Notes: [facility]. [facility] the [facility], his medications are in his locker. He will f/u with his MD at [facility] but very interested in getting ETOH support. [facility] program had him scheduled to go into a program but he may have missed the date being admitted to [facility]. He is anxious to get to the [facility] to see what needs to be done. Patient given bus tokens. Date Signed: 06/11/2017 05:43 PM Electronically Signed By:Chantal Nieto LCSW
--- NOTE | 2017-06-11 17:45 | ASDISCHSUM ---
Discharge Information Plan Status:Homeless/[facility] Medically Cleared to Leave:06/11/2017 Discharge Date:06/11/2017 12:47 PM CM D/C Disposition:[facility] (Homeless) ADT D/C Disposition:Home, Routine, Self-Care Projected Discharge Date:06/11/2017 02:00 PM Transportation at D/C:Bus Ticket Discharge Delay Reason: Follow-Up Date:06/11/2017 02:00 PM Discharge Slot:2 - 12:01 pm - 18:00 pm Final Diagnosis:DKA, ETOH W/D Placement Information Patient Contact Information Contact Name:SINDY Relationship:Sister Address: Work Phone: City: [facility] Phone: State/Apieron Code: Email: Financial Information Financial Class: Primary Plan Desc:[employer] [place] Primary Plan Number:[id number] Secondary Plan Desc: Secondary Plan Number: Assessment Information [facility] CM Progress Note CM Note CM Note Notes: Patient presents to ER with confusion and ETOH withdrawal. I have met with patient to discuss resources and plans for the upcoming winter. Patient has long history of alcoholism, homelessness, and diagnosis of diabetes within the past couple of years. Patient admits to staying at the [facility] "from tme to time" but was not aware of the [facility] program. I have provided patient with information for this program, including the time and location that he can present to this evening to secure a bed for the night I [facility] and for Maggie barney patient's visit to the ER today. Patient tells me that he has been to the clinic within the past couple of months for insulin. I have encouraged him to follow up there tomorrow Date Signed: 06/09/2017 12:25 PM Electronically Signed By:Carey Pablo RN [facility] CM Progress Note CM Note CM Note Notes: Message from Maggie Lucio, PCP [phone] Pt is high utilize and PCP would like to coordinate to assist with management of care Date Signed: 06/10/2017 11:20 AM Electronically Signed By:Chris Levin LCSW [facility] CM Progress Note CM Note CM Note Notes: Patient in W/D needs clothes- received from our loan closet. Asked if he was familiar with ETOH tx resources in [place]-he named what was available in the [facility]. Patient may be here until Saturday, need to arrange for him to see his PCP on discharge, Maggie Delgadillo [phone]. Will wait to make an appointment until we have a better discharge date. Date Signed: 06/10/2017 12:39 PM Electronically Signed By:Chantal Nieto LCSW [facility] CM Progress Note CM Note CM Note Notes: [facility]. [facility] plans to return to the [facility], his medications are in his locker. He will f/u with his MD at [facility] but very interested in getting ETOH support. [facility] program had him scheduled to go into a program but he may have missed the date being admitted to [facility]. He is anxious to get to the [facility] to see what needs to be done. Patient given bus jersey. Date Signed: 06/11/2017 05:43 PM Electronically Signed By:Chantal Nieto LCSW Intervention Information
== END 2017-06-11 12:47 | disposition home or self-care (01) | DRG 638 ==
LOC: EDUNIT# → F2N 14:52
PROVIDERS: ADMIT Internal Medicine; ATTEND Internal Medicine
DX: E10.10 Type 1 diabetes mellitus with ketoacidosis without coma (principal); F10.239 Alcohol dependence with withdrawal, unspecified; T38.3X6A Underdosing of insulin and oral hypoglycemic [antidiabetic] drugs, initial encounter; E87.1 Hypo-osmolality and hyponatremia; K70.10 Alcoholic hepatitis without ascites; K29.20 Alcoholic gastritis without bleeding; F41.9 Anxiety disorder, unspecified; Z79.4 Long term (current) use of insulin; Z89.429 Acquired absence of other toe(s), unspecified side; Z23 Encounter for immunization
CPT/HCPCS: 80305; 82947-QW; 92610-GN; 96374; 97161-GP; G0008; G0472; G0480; J1650; J1815; J2060; J2405; J3475

== ENCOUNTER 2017-12-28 09:32 | Inpatient (IN) | payer MEDICAID ==
[2017-12-28] MEDS ORDERED: NS 1,000 ML IV ONE ×3 (09:58→13:14)
[2017-12-28 10:17] LABS: PLATELET COUNT 390 10^3/uL (150-400)
[2017-12-28] MEDS ORDERED: D10W 1,000 ML IV ONE (10:32)
[2017-12-28] MEDS ORDERED: D50W 25 GM/50 ML SYR IVP PRN ×3 (10:32→19:40)
[2017-12-28] MEDS ORDERED: INSULIN REGULAR HUMAN 100 UNIT, COSIGN. REQUIRED 1 EA in NS 100 ML IV ONE (10:32)
--- NOTE | 2017-12-28 10:47 | EDPHY ---
HPI/HX/ROS/PE/MDM Narrative: CHIEF COMPLAINT: Vomiting, abdominal pain, off insulin HPI: The patient is a 37 y/o male with a history of diabetes with recurrent DKA , alcoholism, insulin noncompliance, and pancreatitis who complains of vomiting onset yesterday with associated epigastric abdominal pain today. He has been off insulin for the last 3 days. He reports he normally takes 20 units of Levemir daily plus sliding scale as needed. His abdominal pain is located in his epigastrium and "feels like there's a sword sticking out of me." He cannot find a position of comfort and reports pain has been worsening since onset. He last drank alcohol yesterday. REVIEW OF SYSTEMS: Aside from elements discussed in the HPI, a comprehensive 10-point review of systems was reviewed and is negative. PMH: diabetes with recurrent DKA, alcoholism, insulin noncompliance, and pancreatitis; toe amputations Prior medical records reviewed including admission 06/09/17 for DKA. SOCIAL HISTORY: Alcohol abuse, nonsmoker, unclear living situation. PCP: [facility]. PHYSICAL EXAM: General:Patient is alert, appears uncomfortable, in no acute distress. Malodorous, unkempt. ENT:Eyes are normal to inspection. ENT inspection normal. Neck: Normal inspection. Full range of motion. Respiratory:No respiratory distress. Breath sounds normal bilaterally. Cardiovascular: Regular rate and rhythm. Strong peripheral pulses. Normal cap refill. Abdomen:The abdomen has moderate epigastric tenderness to palpation. There are no peritoneal signs. Back: Normal to inspection. No tenderness to palpation. Skin: Normal color. No rash. Warm and dry. Extremities: Normal appearance. Full range of motion. Neuro: Oriented x3. Normal motor function. Normal sensory function. ED Course: This is a 37 y/o male with diabetes type I and poor compliance and prior admissions for DKA and pancreatitis who presents today with similar symptoms after stopping his insulin 3 days ago. He has moderate epigastric tenderness on exam. Plan for IV, labs. Initial BGL is 358, DKA protocol initiated. 1L IV NS ordered. WBC count elevated. Spoke with hospitalist service. Dr. Schultz accepts admission. He would like BMP repeated, which I have ordered. MDM: Critical care time spent by me, Dr. Saba, exclusively with this patient was 40 minutes, exclusive of PA time and exclusive of procedures. The organ system at risk was endocrine and I gave IVF, and insulin drip per protocol. - Data Points Laboratory Results: Laboratory Results 12/28/17 09:40 12/28/17 09:40 12/28/17 12/28/17 12/28/17 10:54 09:40 09:40 WBC 18.20 10^3/uL H 10^3/uL (3.80-9.50) RBC 4.95 10^6/uL 10^6/uL (4.40-6.38) Hgb 15.7 g/dL g/dL (13.7-17.5) Hct 47.1 % % (40.0-51.0) MCV 95.2 fL fL (81.5-99.8) MCH 31.7 pg pg (27.9-34.1) MCHC 33.3 g/dL g/dL (32.4-36.7) RDW 11.5 % % (11.5-15.2) Plt Count 390 10^3/uL 10^3/uL (150-400) MPV 9.5 fL fL (8.7-11.7) Neut % (Auto) 83.4 % H % (39.3-74.2) Lymph % (Auto) 11.1 % L % (15.0-45.0) [place] % (Auto) 4.6 % % (4.5-13.0) Eos % (Auto) 0.0 % L % (0.6-7.6) Baso % (Auto) 0.4 % % (0.3-1.7) Nucleat RBC Rel Count 0.0 % % (0.0-0.2) Absolute Neuts (auto) 15.17 10^3/uL H 10^3/uL (1.70-6.50) Absolute Lymphs (auto) 2.02 10^3/uL 10^3/uL (1.00-3.00) Absolute Monos (auto) 0.84 10^3/uL H 10^3/uL (0.30-0.80) Absolute Eos (auto) 0.00 10^3/uL L 10^3/uL (0.03-0.40) Absolute Basos (auto) 0.08 10^3/uL 10^3/uL (0.02-0.10) Absolute Nucleated RBC 0.00 10^3/uL 10^3/uL (0-0.01) Immature Gran % 0.5 % % (0.0-1.1) Immature Gran # 0.09 10^3/uL 10^3/uL (0.00-0.10) Puncture Site NONE GIVEN Patient Temperature 37.0 DEGREES DEGREES VBG pH 7.21 L (7.31-7.42) VBG HCO3 10 mEQ/L L mEQ/L (22-26) VBG Total CO2 11 mEq/L L mEq/L (23-27) VBG O2 Saturation 98 % H % (65-75) VBG Base Excess -16.8 mEq/L L mEq/L (-2.5-2.5) Mixed VBG pCO2 25 mmHg L mmHg (40-44) Mixed VBG pO2 126 mmHg H mmHg (35-40) Sodium 143 mEq/L mEq/L (135-145) Potassium 5.0 mEq/L mEq/L (3.5-5.2) Chloride 97 mEq/L mEq/L (97-110) Carbon Dioxide 9 mEq/l L* mEq/l (22-31) Anion Gap 37 mEq/L H mEq/L (8-16) BUN 16 mg/dL mg/dL (7-23) Creatinine 1.3 mg/dL mg/dL (0.7-1.3) Estimated GFR > 60 Glucose 350 mg/dL H mg/dL (70-100) Calcium 9.5 mg/dL mg/dL (8.5-10.4) Phosphorus 5.9 mg/dL H mg/dL (2.5-4.5) Magnesium 2.0 mg/dL mg/dL (1.6-2.3) Total Bilirubin 2.3 mg/dL H mg/dL (0.1-1.4) Conjugated Bilirubin 0.6 mg/dL H mg/dL (0.0-0.5) Unconjugated Bilirubin 1.7 mg/dL H mg/dL (0.0-1.1) AST 88 IU/L H IU/L (17-59) ALT 48 IU/L IU/L (21-72) Alkaline Phosphatase 197 IU/L H IU/L (38-126) Total Protein 8.8 g/dL H g/dL (6.3-8.2) Albumin 5.4 g/dL H g/dL (3.5-5.0) Lipase 31 IU/L IU/L (23-300) Beta-Hydroxybutyrate 1.81 mmol/L H mmol/L (0.02-0.27) Medications Given: Sodium Chloride (Ns) 1,000 mls @ 1,000 mls/hr IV EDNOW ONE PRN Reason: Protocol Stop: 12/28/17 12:31 Last Admin: 12/28/17 11:01 Dose: 1,000 mls Discontinued Medications Sodium Chloride (Ns) 1,000 mls @ 0 mls/hr IV EDNOW ONE; Wide Open PRN Reason: Protocol Stop: 12/28/17 09:59 Last Admin: 12/28/17 10:04 Dose: 1,000 mls Dextrose (D10w) 1,000 mls @ 0 mls/hr IV CONT ONE; Per Protocol PRN Reason: Protocol Stop: 12/28/17 10:33 Last Admin: 12/28/17 11:00 Dose: 1,000 mls General Time Seen by Provider: 12/28/17 09:43 Initial Vital Signs: Initial Vital Signs Temperature (C) 36.5 C 12/28/17 09:32 Heart Rate 102 H 12/28/17 09:32 Respiratory Rate 20 12/28/17 09:32 Blood Pressure 134/107 H 12/28/17 09:32 O2 Sat (%) 96 12/28/17 09:32 O2 Delivery Mode Room Air Allergies/Adverse Reactions: codeine Allergy (Mild, Verified 12/28/17 09:36) Itching Home Medications: Medication Instructions Recorded Insulin Detemir [Levemir] 20 unit SQ BID 07/08/16 Insulin Aspart [Novolog Flexpen] 5 unit SQ DAILY@12 06/09/17 Departure - Departure Disposition: [facility] Acute Clinical Impression: DKA (diabetic ketoacidoses) Qualifiers: Diabetes mellitus type: type 1 Diabetes mellitus complication detail: without coma Qualified Code(s): E10.10 - Type 1 diabetes mellitus with ketoacidosis without coma Condition: Fair Report Scribed for: Augustus Saba Report Scribed by: Angela Hernández Date of Report: 12/28/17 Time of Report: 10:48 Physician Review and Approval Statement: Portions of this note were transcribed by an ED scribe. I personally performed the history, physical exam, and medical decision making; and confirm the accuracy of the information in the transcribed note.
[2017-12-28] MEDS ORDERED: ONDANSETRON 4 MG/2 ML VIAL IVP PRN (13:14)
[2017-12-28] MEDS ORDERED: ONDANSETRON DISINTEGRATING 4 MG TAB PO PRN (13:14)
[2017-12-28] MEDS ORDERED: ACETAMINOPHEN 325 MG TAB PO PRN (13:14)
[2017-12-28] MEDS: HYDROmorphONE/DILAUDID 1 MG/ML INJ IVP PRN ×3 (13:34→21:21)
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
[2017-12-28] MEDS ORDERED: D10W 1,000 ML IV SCH (14:00)
[2017-12-28] MEDS ORDERED: RN:ENTER POTASSIUM ICU PROTOCOL ON WORKLIST MISC ONE (14:00)
[2017-12-28] MEDS ORDERED: INSULIN REGULAR HUMAN 100 UNIT in NS 100 ML IV SCH (14:00)
[2017-12-28] MEDS ORDERED: PROTOCOL POTASSIUM 1 DOSE MISC PRN (14:14)
[2017-12-28] MEDS: NS 1,000 ML IV SCH ×3 (14:26→19:58)
--- NOTE | 2017-12-28 15:13 | PDMN ---
Medical Necessity Medical necessity: C/M review: est. > 2 MN LOS for eval and TX of acute severe acidosis, suspect DKA, suspected acute pancreatitis, leukocytosis requiring IV fluids, ongoing NPO, IV Dilaudid, IV Human Regular Insulin infusion, glucose and basic metabolic panel lab monitoring, monitor for alcohol withdrawal in ICU , comorbid history of alcohol abuse chronic pancreatitis, type 1 diabetes, left foot amputation secondary to frostbite, homelessness, patient had been in alcohol rehab for about 6 months in [facility] prior to this admission per H/P.
--- NOTE | 2017-12-28 16:26 | ASMTCMCOM ---
CM Note CM Note Notes: I have met with patient prior to his admission (see ER record for details and detailed history). Patient informs me that he had gone to long-term rehab in [place] () after his last ER visit (06/09/17) and recently left there on a pass, and started drinking again. He is very matter of fact in acknowledging that this was a bad idea. he tells me that he would like to return to this rehab, but does not know if it will be possible "I screwed up". I offered to contact this rehab on his behalf but patient states that he would prefer to wait until he is feeling better. I have LM for Maggie BAKER at the [facility] re patient's admission and patient states that he will follow up with her/clinic upon discharge. Patient confirms that he did go through the PTH program in the past and is aware of the process. I have provided him with an up to date pamphlet regarding this process. CM to follow Date Signed: 12/28/2017 01:45 PM Electronically Signed By:Carey Pablo RN
[2017-12-28] MEDS ORDERED: INSULIN GLARGINE 100 UNITS/ML UNIT SC SCH ×2 (19:45)
[2017-12-28] MEDS: INSULIN REGULAR HUMAN 100 UNIT/ML UNIT SC SCH (19:57)
[2017-12-28] MEDS ORDERED: LORazepam 1 MG TAB PO PRN (20:09)
[2017-12-28] MEDS ORDERED: LORazepam 2 MG/ML INJ IVP PRN (20:09)
[2017-12-28] MEDS: POTASSIUM Cl (KCl) 100 ML IV SCH ×2 (22:08→23:13)
[2017-12-29] MEDS: POTASSIUM Cl (KCl) 100 ML IV SCH ×3 (00:14→15:49)
[2017-12-29] MEDS: NS 1,000 ML IV SCH ×3 (01:41→19:01)
[2017-12-29] MEDS: INSULIN REGULAR HUMAN 100 UNIT/ML UNIT SC SCH ×2 (01:53→07:59)
[2017-12-29] MEDS: oxyCODONE IR 5 MG TAB PO PRN (02:30)
[2017-12-29 07:16] LABS: PLATELET COUNT 200 10^3/uL (150-400)
[2017-12-29] MEDS: HYDROmorphONE/DILAUDID 1 MG/ML INJ IVP PRN ×4 (08:01→20:18)
--- NOTE | 2017-12-29 09:32 | HOSPPROG ---
Hospitalist Progress Note Assessment/Plan: # DKA - resolved, now off insulin gtt on SQ insulin - had lost his insulin # DM - suspect type 1 given his report of chronic pancreatitis - check c-peptide and A1c - cont glargine 10U BID (home dose 20 BID) - cont SSI # suspect pancreatitis - lipase normal - check CT abd/pelvis to eval pancreas - advanced to clears, may need to be NPO again - cont IVF and pain control # etOH abuse - had been sober for 6 months, drank one pint which seemed to trigger his abd pain - stop CIWA, restart if shows signs of w/d # dispo - to med surg Subjective: still has epigastric pain, better than yesterday Objective: Vital Signs Temp Pulse Resp BP Pulse Ox 37.1 C 74 15 137/75 H 95 12/29/17 04:00 12/29/17 06:00 12/29/17 06:00 12/29/17 06:00 12/29/17 06:00 Laboratory Results 12/29/17 05:50 12/29/17 08:30 12/28/17 12/29/17 12/30/17 05:59 05:59 05:59 Intake Total 6450.9 Output Total 3600 Balance 2850.9 high risk, still recovering from DKA - Physical Exam Constitutional: appears nourished, uncomfortable Cardiovascular: regular rate and rhythym, no murmur, rub, or gallop Respiratory: no respiratory distress, no rales or rhonchi, clear to auscultation Gastrointestinal: normoactive bowel sounds, no palpable masses, tenderness ( epigastric), No guarding, No rebound, No distension ICD10 Worksheet Patient Problems: Problems Problem Status Onset Frostbite of foot Acute Pancreatitis Acute MRSA (methicillin resistant staph aureus) culture positive Acute 10/07/13 High anion gap metabolic acidosis Acute Isopropyl alcohol poisoning Acute Metabolic acidosis due to methanol Acute Metabolic acidosis due to ethylene glycol Acute DKA (diabetic ketoacidoses) Acute Alcohol withdrawal Acute
[2017-12-29] MEDS: INSULIN GLARGINE 100 UNITS/ML UNIT SC SCH ×2 (09:36→21:51)
[2017-12-29] MEDS ORDERED: PNEUMOCOCCAL 0.5ML VACCINE VIAL IM ONE (09:46)
[2017-12-29] MEDS ORDERED: IOPAMIDOL (ISOVUE-300) 100 ML BTL ONE (11:19)
[2017-12-29] MEDS: FAMOTIDINE 20 MG TAB PO SCH (11:28)
[2017-12-29] MEDS: THIAMINE HCL 500 MG in NS 100 ML IV SCH (12:09)
[2017-12-29] MEDS ORDERED: INSULIN LISPRO 100 UNIT/ML SC ONE (15:45)
[2017-12-29] MEDS: INSULIN LISPRO 100 UNIT/ML SC SCH (17:12)
[2017-12-29] MEDS ORDERED: PROTOCOL POTASSIUM 1 DOSE MISC PRN (17:20)
[2017-12-30] MEDS: HYDROmorphONE/DILAUDID 1 MG/ML INJ IVP PRN (01:27)
[2017-12-30] MEDS ORDERED: POTASSIUM CL 10 MEQ TAB PO ONE ×2 (02:00→08:57)
[2017-12-30] MEDS: NS 1,000 ML IV SCH (05:09)
[2017-12-30] MEDS: FAMOTIDINE 20 MG TAB PO SCH (07:28)
[2017-12-30] MEDS: HYDROmorphONE/DILAUDID 2 MG TAB PO PRN ×4 (07:28→20:18)
[2017-12-30] MEDS: THIAMINE HCL 500 MG in NS 100 ML IV SCH (08:41)
[2017-12-30] MEDS: INSULIN LISPRO 100 UNIT/ML SC SCH ×3 (08:41→17:04)
[2017-12-30] MEDS: INSULIN GLARGINE 100 UNITS/ML UNIT SC SCH ×2 (08:41→21:33)
--- NOTE | 2017-12-30 15:28 | HOSPPROG ---
Hospitalist Progress Note Assessment/Plan: #Chronic pancreatitis -abd MRI shows pancreatic duct dilatation with calcifications which is c/w with chronic disease -due to alcohol use -ADAT #Etoh dependence: just out rehab program. Wants more resources form CM. Will provide lists of AA meetings. Counseled on cessation. #Abd pain: improving. #Diabetes: suspect Type 1 with chronicity. Labs pending. Levemir and SSI (on reduced dose here with good glucose control) #DKA: resolved #Leukocytosis: trending down. Suspect stress-response. No e/o infection, no ascites to tap #DVT ppx: Lovenox #Disp: likely DC if tolerating PO tomorrow Subjective: feels hungry. No N/V. Mild pain controlled with oral dilaudid Objective: Vital Signs Temp Pulse Resp BP Pulse Ox 36.9 C 58 L 16 130/97 H 95 12/30/17 07:57 12/30/17 07:57 12/30/17 07:57 12/30/17 07:57 12/30/17 07:57 Laboratory Results 12/29/17 05:50 12/30/17 05:05 12/29/17 12/30/17 12/31/17 05:59 05:59 05:59 Intake Total 6450.9 3225 Output Total 3600 4000 1250 Balance 2850.9 -775 -1250 - Time Spent With Patient Time Spent with Patient: greater than 35 minutes Time Spent with Patient: Greater than 35 minutes spent on this patients care, greater than 50% of time spent counseling, educating, and coordinating care regarding the above mentioned plan. - Physical Exam Constitutional: no apparent distress Eyes: PERRL Ears, Nose, Mouth, Throat: moist mucous membranes Cardiovascular: regular rate and rhythym Respiratory: no respiratory distress Gastrointestinal: normoactive bowel sounds, tenderness (mild epigastric TTP, no rebound/guarding) Genitourinary: no bladder fullness Skin: warm Musculoskeletal: full muscle strength Neurologic: AAOx3 ICD10 Worksheet Patient Problems: Problems Problem Status Onset DKA (diabetic ketoacidoses) Acute Alcohol withdrawal Acute Frostbite of foot Acute High anion gap metabolic acidosis Acute Isopropyl alcohol poisoning Acute MRSA (methicillin resistant staph aureus) culture positive Acute 10/07/13 Metabolic acidosis due to ethylene glycol Acute Metabolic acidosis due to methanol Acute Pancreatitis Acute
--- NOTE | 2017-12-30 16:08 | ASMTCMCOM ---
ROBERTA Note CM Note Notes: Spoke with patient. He is back in [place] after a 6 mos stint at [facility] for EtOH treatment. He told me that "it was time to go;" he left the treatment center on a pass and did not return. He is not interested in further EtOH treatment; he says that he knows what he has to do. He's connected to the [facility] and will sleep there. He requested some clothes and an appointment with his PCP at the [facility]. We can provide the clothes, and I scheduled his appointment for 01/02 @ 1441. We will need to insure that he has enough insulin to make it to his appointment. Date Signed: 12/30/2017 04:08 PM Electronically Signed By:Anna Marie Marion RN
[2017-12-30 23:14] VITALS: BP 139/85
[2017-12-31] MEDS: HYDROmorphONE/DILAUDID 2 MG TAB PO PRN ×3 (00:58→09:47)
[2017-12-31] MEDS ORDERED: MAG HYDROX/AL HYDROX/SIMETH 30 ML UDCUP PO ONE (08:55)
[2017-12-31] MEDS ORDERED: LIDOCAINE 2% VISCOUS 15 ML UDCUP PO ONE (08:55)
[2017-12-31] MEDS ORDERED: HYOSCYAMINE SULFATE 0.125 MG TAB PO ONE (08:55)
[2017-12-31] MEDS: INSULIN LISPRO 100 UNIT/ML SC SCH (09:44)
[2017-12-31] MEDS: INSULIN GLARGINE 100 UNITS/ML UNIT SC SCH (09:46)
[2017-12-31] MEDS: FAMOTIDINE 20 MG TAB PO SCH (09:46)
[2017-12-31] MEDS: THIAMINE HCL 500 MG in NS 100 ML IV SCH (09:48)
[2017-12-31] MEDS ORDERED: POTASSIUM CL 10 MEQ TAB PO ONE (10:07)
[2017-12-31] MEDS: oxyCODONE IR 5 MG TAB PO PRN (12:19)
--- NOTE | 2017-12-31 14:25 | GDS ---
[f rep st] DISCHARGE SUMMARY DISCHARGE DIAGNOSIS: 1. Chronic pancreatitis. 2. Alcohol dependence. 3. Abdominal pain. 4. Diabetes. 5. Diabetic ketoacidosis. 6. Leukocytosis. 7. Anion gap metabolic acidosis. HISTORY OF PRESENT ILLNESS: A 37-year-old male with alcohol dependence, homelessness, and diabetes, presenting with abdominal pain. He has been in alcohol rehab for 6 months in [facility] and had not had anything to drink. He was discharged a week ago, ended up on the streets of [place]. He drank a pint of vodka prior to coming in. At that time, he developed severe stabbing abdominal pain by previous episodes of pancreatitis. He had significant vomiting. No hematemesis. HOSPITAL COURSE: 1. Acute on chronic pancreatitis: He has chronic alcohol use, had refrained for over 6 months and then drank a pint. He had an MRI of the abdomen c/w chronic pancreatitis with duct dilatation and calcifications, but no stones. Now tolerating p.o. pain medications and food. Advance diet slowly and refrain from alcohol. 2. Alcohol dependence: He was just discharged from rehab. He is homeless, which makes it difficult for him to refrain from alcohol. He was provided resources from Case Management including AA meetings. 3. Diabetes: States that he ran out of insulin a couple days prior to admission. He was prescribed NovoLog and Levemir. 4. DKA. Again, secondary to running out of insulin and alcohol use. Labs are pending to evaluate further for type 1 DM 5. Leukocytosis: due to stress response. No evidence of infection on imaging or UA. Disposition: Patient is stable for discharge today. He has [facility] a bed at a [facility]. MEDICATIONS: New medications: Dilaudid 2 mg only, dispense 10. FOLLOWUP: primary care physician at [facility]. PHYSICAL EXAMINATION: VITAL SIGNS: Today, temperature 36.8, blood pressure 139 /85, heart rate , respirations 16, 95% on room air. GENERAL: He is well-appearing, smiling, no acute distress. HEENT: PERRLA. EOMI. Oropharynx clear. CV: Regular rate and rhythm. No murmurs, gallops, rubs. LUNGS: Clear. ABDOMEN: Mild epigastric tenderness with palpation. No rebound or guarding. Positive bowel sounds. GENITOURINARY: No Singh. MUSCULOSKELETAL: 5/5 upper and lower extremity strength. NEUROLOGIC: 2 through 12 intact. PSYCHIATRIC: Alert and oriented x3. TIME SPENT ON DISCHARGE: Greater than 35 minutes at bedside with patient counseling on alcohol cessation and options for AA meetings. /[id number]/MODL MTDD
--- NOTE | 2017-12-31 17:15 | ASMTCMCOM ---
CM Note CM Note Notes: Pt medically stable for d[facility]c [facility]. Pt has follow up [facility] appt . Pt insulin and d/c meds filled today via [facility]. Pt provided clothing. Date Signed: 12/31/2017 12:27 PM Electronically Signed By:CATY Akins
[2018-01-01] MEDS ORDERED: THIAMINE HCL 100 MG TAB PO SCH (09:00)
== END 2017-12-31 12:40 | disposition home or self-care (01) | DRG 282 ==
LOC: EDUNIT# → OBSVTOIN 11:32 → F2N 12:46 → F3N 12-29 17:07
PROVIDERS: ADMIT Student in an Organized Health Care Education/Training Program; ATTEND Student in an Organized Health Care Education/Training Program
DX: K85.20 Alcohol induced acute pancreatitis without necrosis or infection (principal); E10.10 Type 1 diabetes mellitus with ketoacidosis without coma; T38.3X6A Underdosing of insulin and oral hypoglycemic [antidiabetic] drugs, initial encounter; K86.0 Alcohol-induced chronic pancreatitis; F10.288 Alcohol dependence with other alcohol-induced disorder; Z59.0 Homelessness; Z23 Encounter for immunization
CPT/HCPCS: 82947-QW; 84681-90; G0009; J1170; J1815; J2405; J3411; J3480; Q9967

== ENCOUNTER 2018-04-26 18:41 | Emergency (ER) | payer MEDICAID, OTHER ==
[2018-04-26] MEDS ORDERED: NS 1,000 ML IV ONE (18:47)
[2018-04-26] MEDS ORDERED: LORazepam 2 MG/ML INJ IVP ONE (18:48)
--- NOTE | 2018-04-26 18:50 | EDPHY ---
H & P Time Seen by Provider: 04/26/18 18:44 HPI/ROS: CHIEF COMPLAINT: Shaky, blurry vision, nausea HISTORY OF PRESENT ILLNESS: Patient is a 37-year-old type 2 diabetic alcoholic who was at the [facility] recovery [facility]. He has not drank in 24 hr. He feels that he is withdrawing. They checked his sugar and found that it was 260 and were concerned about diabetic emergency. The patient states that this is actually kind of a low blood sugar for him. He denies trauma. No recent fevers. He has not received any benzodiazepines. He also states that he has a history of high anxiety and thinks that he is having an anxiety attack. Severity: Moderate Modifying factors: None REVIEW OF SYSTEMS: Constitutional: See HPI EENTM: See HPI Respiratory: denies: cough, shortness of breath Cardiac: denies: chest pain, irregular heart rate, lightheadedness, palpitations Gastrointestinal/Abdominal: denies: abdominal pain, diarrhea, nausea, vomiting, blood streaked stools Genitourinary: denies: dysuria, frequency, hematuria, pain Musculoskeletal: denies: joint pain, muscle pain Skin: denies: lesions, rash, jaundice, bruising Neurological: denies: headache, numbness, paresthesia, tingling, dizziness, weakness Hematologic/Lymphatic: denies: blood clots, easy bleeding, easy bruising Immunologic/allergic: denies: HIV/AIDS, transplant 10 systems reviewed and negative except as noted EXAM: GENERAL: Anxious, moderate distress HEAD: Atraumatic, normocephalic. EYES: Pupils equal round and reactive to light, extraocular movements intact, sclera anicteric, conjunctiva are normal. ENT: TMs normal, nares patent, oropharynx clear without exudates. Moist mucous membranes. NECK: Normal range of motion, supple without lymphadenopathy or JVD. LUNGS: Breath sounds clear to auscultation bilaterally and equal. No wheezes rales or rhonchi. HEART: Regular rate and rhythm without murmurs, rubs or gallops. ABDOMEN: Soft, nontender, normoactive bowel sounds. No guarding, no rebound. No masses appreciated. BACK: No CVA tenderness, no spinal tenderness, step-offs or deformities EXTREMITIES: Normal range of motion, no pitting or edema. No clubbing or cyanosis. NEUROLOGICAL: Cranial nerves II through XII grossly intact. Normal speech, normal gait. 5/5 strength, normal movement in all extremities, normal sensation , normal reflexes PSYCH: Anxious, tremulous SKIN: Warm, dry, normal turgor, no visible rashes or lesions. Source: Patient Exam Limitations: No limitations - Personal History Tetanus Vaccine Date: 2013 - Medical/Surgical History Hx Asthma: No Hx Chronic Respiratory Disease: No Hx Diabetes: Yes Hx Cardiac Disease: No Hx Renal Disease: No Hx Cirrhosis: No Hx Alcoholism: Yes Hx HIV/AIDS: No Hx Splenectomy or Spleen Trauma: No Other PMH: neuopathy, anxiety, left toes amputated, ETOH, pancreatitis, diabetes - Family History Significant Family History: No pertinent family hx - Social History Smoking Status: Never smoked Alcohol Use: Heavy Drug Use: None Constitutional: Initial Vital Signs Temperature (C) 36.8 C 04/26/18 18:41 Heart Rate 85 04/26/18 18:41 Respiratory Rate 20 04/26/18 18:41 Blood Pressure 151/104 H 04/26/18 18:41 O2 Sat (%) 99 04/26/18 18:41 O2 Delivery Mode Room Air Allergies/Adverse Reactions: codeine Allergy (Mild, Verified 12/28/17 09:36) Itching Home Medications: Medication Instructions Recorded Levemir 03/22/18 novoLOG 03/22/18 Medical Decision Making ED Course/Re-evaluation: 8:00 p.m. the patient is feeling completely better. He is calm. He is [facility]. I will send him with a Librium pack. Differential Diagnosis: Partial list of the Differential diagnosis considered include but were not limited to; alcohol withdrawal, anxiety, dehydration and although unlikely based on the history and physical exam, I also considered infection, head injury. I discussed these differential diagnoses and the plan with the patient as well as the usual and expected course. The patient understands that the diagnosis is provisional and that in medicine we are not always correct and that further workup is often warranted. Usual and customary warnings were given. All of the patient's questions were answered. The patient was instructed to return to the emergency department should the symptoms at all worsen or return, otherwise to followup with the physician as we discussed. - Data Points Laboratory Results: Laboratory Results 04/26/18 18:55 04/26/18 18:55 04/26/18 04/26/18 18:55 18:55 WBC 14.98 10^3/uL H 10^3/uL (3.80-9.50) RBC 4.94 10^6/uL 10^6/uL (4.40-6.38) Hgb 15.8 g/dL g/dL (13.7-17.5) Hct 43.7 % % (40.0-51.0) MCV 88.5 fL fL (81.5-99.8) MCH 32.0 pg pg (27.9-34.1) MCHC 36.2 g/dL g/dL (32.4-36.7) RDW 11.8 % % (11.5-15.2) Plt Count 313 10^3/uL 10^3/uL (150-400) MPV 8.9 fL fL (8.7-11.7) Neut % (Auto) Not Reported Lymph % (Auto) Not Reported [place] % (Auto) Not Reported Eos % (Auto) Not Reported Baso % (Auto) Not Reported Nucleat RBC Rel Count Not Reported Absolute Neuts (auto) Not Reported Absolute Lymphs (auto) Not Reported Absolute Monos (auto) Not Reported Absolute Eos (auto) Not Reported Absolute Basos (auto) Not Reported Absolute Nucleated RBC Not Reported Immature Gran % Not Reported Seg Neutrophils % 60.0 % % Band Neutrophils % 0.0 % % Lymphocytes % 31.0 % % Monocytes % 8.0 % % Eosinophils % 1.0 % % Basophils % 0.0 % % Metamyelocytes % 0.0 % % Myelocytes % 0.0 % % Promyelocytes % 0.0 % % Blast Cells % 0.0 % % Immature Gran # Not Reported Absolute Seg Neuts 8.99 10^/uL H 10^/uL (1.70-6.50) Absolute Band Neuts 0.00 10^3/uL 10^3/uL (0.00-0.70) Absolute Lymphocytes 4.64 10^3/uL H 10^3/uL (1.00-3.00) Absolute Monocytes 1.20 10^3/uL H 10^3/uL (0.30-0.80) Absolute Eosinophils 0.15 10^3/uL 10^3/uL (0.03-0.40) Absolute Basophils 0.00 10^3/uL L 10^3/uL (0.02-0.10) Absolute Metamyelocyte 0.00 10^3/mL 10^3/mL (0.00-0.00) Absolute Myelocytes 0.00 10^3/mL 10^3/mL (0.00-0.00) Absolute Promyelocytes 0.00 10^3/uL 10^3/uL (0.00-0.00) Absolute Plasma Cells 0.00 10^3/uL 10^3/uL (0.00-0.00) Nucleated RBCs 0 /100 WBC /100 WBC (0-0) RBC/WBC/PLT Morphology NORMAL (NORMAL) Absolute Blast Cells 0.00 10^3/uL 10^3/uL (0.00-0.00) Plasma Cells % 0.0 % % Platelet Estimate ADEQUATE (ADEQ) Sodium 138 mEq/L mEq/L (135-145) Potassium 4.3 mEq/L mEq/L (3.3-5.0) Chloride 98 mEq/L mEq/L (97-110) Carbon Dioxide 19 mEq/l L mEq/l (22-31) Anion Gap 21 mEq/L H mEq/L (8-16) BUN 12 mg/dL mg/dL (7-23) Creatinine 0.7 mg/dL mg/dL (0.7-1.3) Estimated GFR > 60 Glucose 228 mg/dL H mg/dL (70-100) Calcium 9.8 mg/dL mg/dL (8.5-10.4) Medications Given: Discontinued Medications Chlordiazepoxide (Librium 25 Mg Prepack#6) 1 btl TAKEHOME EDNOW ONE Stop: 04/26/18 20:03 Last Admin: 04/26/18 20:18 Dose: 1 btl Sodium Chloride (Ns) 1,000 mls @ 0 mls/hr IV EDNOW ONE; Wide Open PRN Reason: Protocol Stop: 04/26/18 18:48 Last Admin: 04/26/18 18:59 Dose: 1,000 mls Lorazepam (Ativan Injection) 2 mg IVP EDNOW ONE Stop: 04/26/18 18:49 Last Admin: 04/26/18 18:59 Dose: 2 mg Departure - Departure Disposition: Home, Routine, Self-Care Clinical Impression: Alcohol withdrawal Qualifiers: Complication of substance-induced condition: uncomplicated Qualified Code(s): F10.230 - Alcohol dependence with withdrawal, uncomplicated Condition: Fair Instructions: Chlordiazepoxide (By mouth), Alcohol Withdrawal (ED) Referrals: NONE *PRIMARY CARE P,. [Primary Care Provider] - As per Instructions [facility],. [Clinic] - As per Instructions
[2018-04-26 19:08] LABS: PLATELET COUNT 313 10^3/uL (150-400)
[2018-04-26] MEDS ORDERED: CHLORDIAZEPOXIDE 25MG PREPK#6 BTL TAKEHOME ONE (20:02)
[2018-04-26 20:27] VITALS: BP 135/89
== END 2018-04-26 20:30 | disposition home or self-care (01) ==
LOC: EDUNIT#
DX: F10.230 Alcohol dependence with withdrawal, uncomplicated (principal); E11.9 Type 2 diabetes mellitus without complications; E86.9 Volume depletion, unspecified; F41.9 Anxiety disorder, unspecified
CPT/HCPCS: 96374; J2060

== ENCOUNTER 2018-05-05 07:57 | Emergency (ER) | payer MEDICAID ==
--- NOTE | 2018-05-05 07:59 | EDPHY ---
H & P Time Seen by Provider: 05/05/18 07:58 HPI/ROS: CHIEF COMPLAINT: Shaky and alcohol withdrawal HISTORY OF PRESENT ILLNESS: Brought in by EMS, alcohol withdrawal, no alcohol since yesterday. States shakiness is severe, associated with dry heaves. No diarrhea or abdominal pain. He has not been able to keep his medications down. Denies associated seizure or visual hallucinations. Not better worse with anything. REVIEW OF SYSTEMS: Eye: no change in vision ENT: no sore throat Cardiac: no chest pain or syncope Pulmonary: no cough or SOB Abdomen: No abdominal pain or diarrhea Musculoskeletal: no back pain Skin: no rash Neuro: Headache after falling last night and hitting his head. Constitutional: no fever : no urinary symptoms A comprehensive 10 point review of systems is otherwise negative aside from elements mentioned in the history of present illness. PAST MEDICAL HISTORY: Diabetes, left transmetatarsal foot amputation Social history: Currently homeless General Appearance: Alert and conversant, cooperative. Eyes: No scleral icterus. ENT, Mouth: Normal mucous membranes. Respiratory: Normal respiratory effort, breath sounds equal, lungs are clear to auscultation. Cardiovascular: Regular rate and rhythm. Gastrointestinal: Abdomen is soft and non tender. Neurological: Alert, face symmetric, normal motor and sensory in extremities. Very tremulous and shaky, normal sensorium, not hallucinating Skin: Multiple extremity abrasions but no lacerations or cellulitis. Musculoskeletal: Left midfoot amputation. Psychiatric: Moderately anxious. Emergency Department course/MDM: 2 mg of Ativan IV, labs sent. 830: Re-examined and still is a little bit shaky but does appear clinically better and feels better. Still does have some tremor. 901: Labs reviewed, slightly hyperglycemic, normal pH, still does have ethanol on board. Plan to treat withdrawal, discharge to detox. At discharge patient does not have tremor anymore. No vomiting. Does not have evidence of DKA on laboratory. Constitutional: Initial Vital Signs Temperature (C) 36.9 C 05/05/18 08:06 Heart Rate 87 05/05/18 08:06 Respiratory Rate 18 05/05/18 08:06 Blood Pressure 149/85 H 05/05/18 08:06 O2 Sat (%) 96 05/05/18 08:06 O2 Delivery Mode Room Air Allergies/Adverse Reactions: codeine Allergy (Mild, Verified 12/28/17 09:36) Itching Home Medications: Medication Instructions Recorded Levemir 03/22/18 novoLOG 03/22/18 Medical Decision Making - Diagnostics Imaging Results: Imaging Impressions Head CT 05/05/18 08:31 Impression: 1. No significant intracranial abnormality seen. 2. Nonspecific paranasal sinus disease similar to the prior study. If symptoms worsen, additional imaging may be necessary. Findings discussed with Mendoza Ortega M.D. at 9:11 hour, 05/05/2018. Imaging: Discussed imaging studies w/ recreation attendant supervisor Radiologist Differential Diagnosis: Differential for shaking considered including but not limited to alcohol withdrawal, seizure, anxiety, metabolic - Data Points Laboratory Results: Laboratory Results 05/05/18 08:19 05/05/18 08:19 05/05/18 05/05/18 05/05/18 08:20 08:20 08:19 WBC RBC Hgb Hct MCV MCH MCHC RDW Plt Count MPV Neut % (Auto) Lymph % (Auto) [place] % (Auto) Eos % (Auto) Baso % (Auto) Nucleat RBC Rel Count Absolute Neuts (auto) Absolute Lymphs (auto) Absolute Monos (auto) Absolute Eos (auto) Absolute Basos (auto) Absolute Nucleated RBC Immature Gran % Immature Gran # VBG pH 7.42 (7.31-7.42) Sodium 136 mEq/L mEq/L (135-145) Potassium 4.0 mEq/L mEq/L (3.3-5.0) Chloride 95 mEq/L L mEq/L (97-110) Carbon Dioxide 18 mEq/l L mEq/l (22-31) Anion Gap 23 mEq/L H mEq/L (8-16) BUN 13 mg/dL mg/dL (7-23) Creatinine 0.8 mg/dL mg/dL (0.7-1.3) Estimated GFR > 60 Glucose 249 mg/dL H mg/dL (70-100) Calcium 9.5 mg/dL mg/dL (8.5-10.4) Ethyl Alcohol 54 mg/dL H mg/dL (0-10) 05/05/18 08:19 WBC 9.88 10^3/uL H 10^3/uL (3.80-9.50) RBC 4.67 10^6/uL 10^6/uL (4.40-6.38) Hgb 15.1 g/dL g/dL (13.7-17.5) Hct 41.4 % % (40.0-51.0) MCV 88.7 fL fL (81.5-99.8) MCH 32.3 pg pg (27.9-34.1) MCHC 36.5 g/dL g/dL (32.4-36.7) RDW 11.8 % % (11.5-15.2) Plt Count 271 10^3/uL 10^3/uL (150-400) MPV 9.4 fL fL (8.7-11.7) Neut % (Auto) 61.2 % % (39.3-74.2) Lymph % (Auto) 27.5 % % (15.0-45.0) [place] % (Auto) 8.7 % % (4.5-13.0) Eos % (Auto) 1.7 % % (0.6-7.6) Baso % (Auto) 0.7 % % (0.3-1.7) Nucleat RBC Rel Count 0.0 % % (0.0-0.2) Absolute Neuts (auto) 6.04 10^3/uL 10^3/uL (1.70-6.50) Absolute Lymphs (auto) 2.72 10^3/uL 10^3/uL (1.00-3.00) Absolute Monos (auto) 0.86 10^3/uL H 10^3/uL (0.30-0.80) Absolute Eos (auto) 0.17 10^3/uL 10^3/uL (0.03-0.40) Absolute Basos (auto) 0.07 10^3/uL 10^3/uL (0.02-0.10) Absolute Nucleated RBC 0.00 10^3/uL 10^3/uL (0-0.01) Immature Gran % 0.2 % % (0.0-1.1) Immature Gran # 0.02 10^3/uL 10^3/uL (0.00-0.10) VBG pH Sodium Potassium Chloride Carbon Dioxide Anion Gap BUN Creatinine Estimated GFR Glucose Calcium Ethyl Alcohol Medications Given: Discontinued Medications Chlordiazepoxide (Librium 25 Mg Prepack#6) 1 btl TAKEHOME EDNOW ONE Stop: 05/05/18 09:03 Last Admin: 05/05/18 10:04 Dose: 1 btl Chlordiazepoxide HCl (Librium) 25 mg PO EDNOW ONE Stop: 05/05/18 10:08 Last Admin: 05/05/18 10:09 Dose: 25 mg Sodium Chloride (Ns) 1,000 mls @ 0 mls/hr IV EDNOW ONE; Wide Open PRN Reason: Protocol Stop: 05/05/18 08:58 Last Admin: 05/05/18 09:23 Dose: 1,000 mls Sodium Chloride (Ns) 1,000 mls @ 0 mls/hr IV EDNOW ONE; Wide Open PRN Reason: Protocol Stop: 05/05/18 08:58 Last Admin: 05/05/18 10:05 Dose: 1,000 mls Lorazepam (Ativan Injection) 2 mg IVP EDNOW ONE Stop: 05/05/18 08:02 Last Admin: 05/05/18 08:10 Dose: 2 mg Lorazepam (Ativan Injection) 2 mg IVP EDNOW ONE Stop: 05/05/18 08:31 Last Admin: 05/05/18 08:35 Dose: 2 mg Departure - Departure Disposition: Home, Routine, Self-Care Clinical Impression: Alcohol withdrawal Qualifiers: Complication of substance-induced condition: uncomplicated Qualified Code(s): F10.230 - Alcohol dependence with withdrawal, uncomplicated Condition: Good Instructions: Alcohol Withdrawal (ED) Additional Instructions: You have an appointment on 05/08/18 at 10:40am (please arrive by 10:20am ) at [facility]. Please call ([phone]) if you need to reschedule. Referrals: Maggie Lopez PA [Primary Care Provider] - As per Instructions
[2018-05-05] MEDS ORDERED: LORazepam 2 MG/ML INJ IVP ONE ×2 (08:01→08:30)
[2018-05-05 08:23] LABS: PLATELET COUNT 271 10^3/uL (150-400)
[2018-05-05] MEDS ORDERED: NS 1,000 ML IV ONE ×2 (08:57)
[2018-05-05] MEDS ORDERED: CHLORDIAZEPOXIDE 25MG PREPK#6 BTL TAKEHOME ONE (09:02)
[2018-05-05] MEDS ORDERED: chlordiazePOXIDE 25 MG CAP PO ONE (10:07)
[2018-05-05 10:35] VITALS: BP 122/79
--- NOTE | 2018-05-05 11:44 | ASMTCMCOM ---
CM Note CM Note Notes: Pt presented to the ED for ETOH W/D. Pt was in the ED on 04/26, 03/22, 03/20 and admitted for DKA in 12/28/2017. Spoke w/pt about ETOH abuse treatment resources. Reviewed CM Report from 03/20/18 ED visit and other past CM Reports. Pt has been provided various resources and assistance re:ETOH abuse treatment. Pt has been through the [facility] rehab program (see CM Reports 12/28 & 12/30/17). Pt states he did follow up with Maggie Lopez at [facility] (this was confirmed, pt was seen 04/17/18) and was also seen by [facility] during that visit as well. Pt states he had been sober for about a month at the time of that visit. This CM also requested that [facility] RN, keep an eye out for the pt in the community and assist as needed. Pt states he has been staying at [facility] "whenever I can actually get over there," otherwise he sleeps outside. Pt states he doesn't have any family or close friends who live in the area. His remaining family members are in [place] and he states "they can't do much for me anyway. My sister is a paraplegic and my brother ." Pt states he is interested in getting back into the [facility] [employer] program through [employer] [place]. Pt is aware of [facility] location and how to get in touch with their program and services; info flier provided just in case. Pt was also provided a [facility] pamphlet and encourage him to reach out to Mai Gabriel RN w/[facility]; pt states he will do so. Pt does not have a cell phone at this time or utilize e-mail. This CM scheduled patient a follow-up appt this 05/08/18 at 10:40am at and will also be seen by ASHLEY Gabriel again to further discuss his ETOH abuse, anxiety, etc. Pt states he did follow up w/resources in [place] (such as [facility], [facility], etc.) but "I returned to [facility] for safety reasons." Pt d/c'd to [facility]; pre-pack of Librium and [facility] cab voucher provided. CM available for further assistance if needed. Date Signed: 05/05/2018 11:43 AM Electronically Signed By:Antonietta Bonilla RN
== END 2018-05-05 10:32 | disposition home or self-care (01) ==
LOC: EDUNIT#
DX: F10.230 Alcohol dependence with withdrawal, uncomplicated (principal); E11.9 Type 2 diabetes mellitus without complications; Z59.0 Homelessness; Z89.432 Acquired absence of left foot; Y90.2 Blood alcohol level of 40-59 mg/100 ml
CPT/HCPCS: 96374; G0480; J2060

== ENCOUNTER 2018-06-18 16:28 | Emergency (ER) | payer MEDICAID ==
--- NOTE | 2018-06-18 16:33 | EDPHY ---
H & P Time Seen by Provider: 06/18/18 16:31 HPI/ROS: CHIEF COMPLAINT: Intoxication HISTORY OF PRESENT ILLNESS: Patient is a 37-year-old homeless man who is brought to the emergency department by EMS for intoxication. He was found drunk by the school. Students called. He is ambulatory. He does not wish to be here and states that he does not need care. He also does not wish to go to the [facility]. Severity: Moderate Modifying factors: None REVIEW OF SYSTEMS: Constitutional: denies: chills, fever, recent illness, recent injury EENTM: denies: blurred vision, double vision, nose congestion Respiratory: denies: cough, shortness of breath Cardiac: denies: chest pain, irregular heart rate, lightheadedness, palpitations Gastrointestinal/Abdominal: denies: abdominal pain, diarrhea, nausea, vomiting, blood streaked stools Genitourinary: denies: dysuria, frequency, hematuria, pain Musculoskeletal: denies: joint pain, muscle pain Skin: denies: lesions, rash, jaundice, bruising Neurological: denies: headache, numbness, paresthesia, tingling, dizziness, weakness Hematologic/Lymphatic: denies: blood clots, easy bleeding, easy bruising Immunologic/allergic: denies: HIV/AIDS, transplant 10 systems reviewed and negative except as noted EXAM: GENERAL: Disheveled, intoxicated but not inebriated and in no acute distress. HEAD: Atraumatic, normocephalic. EYES: Pupils equal round and reactive to light, extraocular movements intact, sclera anicteric, conjunctiva are normal. ENT: TMs normal, nares patent, oropharynx clear without exudates. Moist mucous membranes. NECK: Normal range of motion, supple without lymphadenopathy or JVD. LUNGS: Breath sounds clear to auscultation bilaterally and equal. No wheezes rales or rhonchi. HEART: Regular rate and rhythm without murmurs, rubs or gallops. ABDOMEN: Soft, nontender, normoactive bowel sounds. No guarding, no rebound. No masses appreciated. BACK: No CVA tenderness, no spinal tenderness, step-offs or deformities EXTREMITIES: Normal range of motion, no pitting or edema. No clubbing or cyanosis. NEUROLOGICAL: Cranial nerves II through XII grossly intact. Normal speech, normal gait. 5/5 strength, normal movement in all extremities, normal sensation , normal reflexes PSYCH: Normal mood, normal affect. SKIN: Warm, dry, normal turgor, no visible rashes or lesions. Source: Patient Exam Limitations: Intoxication - Personal History Tetanus Vaccine Date: 2013 - Medical/Surgical History Hx Asthma: No Hx Chronic Respiratory Disease: No Hx Diabetes: Yes Hx Cardiac Disease: No Hx Renal Disease: No Hx Cirrhosis: No Hx Alcoholism: Yes Hx HIV/AIDS: No Hx Splenectomy or Spleen Trauma: No Other PMH: neuopathy, anxiety, left toes amputated, ETOH, pancreatitis, diabetes - Family History Significant Family History: No pertinent family hx - Social History Smoking Status: Never smoked Alcohol Use: Heavy Drug Use: Marijuana Constitutional: Initial Vital Signs Temperature (C) 36.6 C 06/18/18 16:36 Heart Rate 68 06/18/18 16:36 Respiratory Rate 16 06/18/18 16:36 Blood Pressure 131/84 H 06/18/18 16:36 O2 Sat (%) 96 06/18/18 16:36 O2 Delivery Mode Room Air Allergies/Adverse Reactions: codeine Allergy (Mild, Verified 12/28/17 09:36) Itching Home Medications: Medication Instructions Recorded Levemir 03/22/18 novoLOG 03/22/18 Medical Decision Making ED Course/Re-evaluation: 4:30 p.m. the patient is ambulating without difficulty. He does not wish to be here and has no complaints. He does not wish to go to the [facility]. He wishes to be discharged. He is not on a jones detainer does not qualify for being retained against as well. Differential Diagnosis: Partial list of the Differential diagnosis considered include but were not limited to; intoxication, polysubstance abuse and although unlikely based on the history and physical exam, I also considered head injury, infection, trauma. Departure - Departure Disposition: Home, Routine, Self-Care Clinical Impression: Alcoholic intoxication Qualifiers: Complication of substance-induced condition: uncomplicated Qualified Code(s): F10.920 - Alcohol use, unspecified with intoxication, uncomplicated Condition: Fair Instructions: Alcohol Intoxication (ED) Referrals: NONE *PRIMARY CARE P,. [Primary Care Provider] - As per Instructions [facility],. [Clinic] - As per Instructions
[2018-06-18 16:38] VITALS: BP 131/84
== END 2018-06-18 16:40 | disposition home or self-care (01) ==
LOC: EDUNIT#
DX: F10.920 Alcohol use, unspecified with intoxication, uncomplicated (principal); E11.21 Type 2 diabetes mellitus with diabetic nephropathy; Z59.0 Homelessness

== ENCOUNTER 2018-06-21 06:05 | Emergency (ER) | payer MEDICAID ==
[2018-06-21] MEDS ORDERED: NS 1,000 ML IV ONE ×2 (06:06)
[2018-06-21] MEDS ORDERED: ONDANSETRON 4 MG/2 ML VIAL IVP ONE (06:06)
--- NOTE | 2018-06-21 06:08 | EDPHY ---
H & P Time Seen by Provider: 06/21/18 06:07 HPI/ROS: HPI CHIEF COMPLAINT: Nausea vomiting, high blood sugar, alcohol HISTORY OF PRESENT ILLNESS: Patient 37-year-old male, familiar to myself, has a history of alcoholism with daily alcohol use, additionally has insulin- dependent diabetes. He presents emergency room for nausea vomiting high blood sugar. He reports he has been drinking alcohol. Denies any complaints of pain anywhere denies chest pain shortness of breath, denies fever. He is also homeless. Past Medical History: Insulin-dependent diabetes, history of DKA, history of alcoholism, alcohol abuse Past Surgical History: History of foot surgery. Social History: Alcohol use. Homeless. Family History: Noncontributory. ROS REVIEW OF SYSTEMS: 10 Systems were reviewed and negative with the exception of the elements mentioned in the history of present illness. Exam Constitutional nontoxic no acute distress, vital signs stable triage nursing summary reviewed, vital signs reviewed, awake/alert. Eyes normal conjunctivae and sclera, EOMI, PERRLA. HENT normal inspection, atraumatic, moist mucus membranes, no epistaxis, neck supple/ no meningismus, no raccoon eyes. Respiratory clear to auscultation bilaterally, normal breath sounds, no respiratory distress, no wheezing. Cardiovascular rate normal, regular rhythm, no murmur, no edema, distal pulses normal. Gastrointestinal soft, non-tender, no rebound, no guarding, normal bowel sounds, no distension, no pulsatile mass. Genitourinary no CVA tenderness. Musculoskeletal no midline vertebral tenderness, full range of motion, no calf swelling, no tenderness of extremities, no meningismus, good pulses, neurovascularly intact. Skin pink, warm, & dry, no rash, skin atraumatic. Neurologic awake, alert and oriented x 3, AAOx3, moves all 4 extremities equally, motor intact, sensory intact, CN II-XII intact, normal cerebellar, normal vision, normal speech. Psychiatric normal mood/affect. Heme/Lymph/Immune no lymphadenopathy. Differential Diagnosis: Includes but is not limited to in a particular order dehydration, electrolyte disturbance, DKA, alcohol intoxication, alcohol abuse Medical Decision Making: Plan for this patient IV establishment IV fluid bolus 2 L normal saline, IV Zofran nausea, check electrolytes, alcohol level, re- evaluate. Re-evaluation: 07: Patient is currently getting IV fluids 2 L. He is not vomiting. Denies chest pain or shortness of breath, denies abdominal pain. Vital signs are stable. He is afebrile nontoxic-appearing. Labs reviewed. Elevated white blood cell count most likely reactive from vomiting. He is afebrile nontoxic-appearing. Patient does not have super low bicarb or large anion gap indicating DKA. However his labs do indicate he is dehydrated receiving 2 L of fluid here. No vomiting. No fever. Patient is homeless, often does not take his insulin, and drinks alcohol. His alcohol level is not acutely elevated here. The patient is receiving 2 L of fluid for hydration. After received 2 L of fluid I believe he can be safely discharged from the ER. I have discussed return precautions with him. He understands return emergency room if develops worsening abdominal pain, fever , vomiting I recommend staying away from drinking alcohol. Source: Patient, EMS - Personal History Tetanus Vaccine Date: 2013 - Medical/Surgical History Hx Asthma: No Hx Chronic Respiratory Disease: No Hx Diabetes: Yes Hx Cardiac Disease: No Hx Renal Disease: No Hx Cirrhosis: No Hx Alcoholism: Yes Hx HIV/AIDS: No Hx Splenectomy or Spleen Trauma: No Other PMH: neuopathy, anxiety, left toes amputated, ETOH, pancreatitis, diabetes - Social History Smoking Status: Never smoked Constitutional: Initial Vital Signs Temperature (C) 37.3 C 06/21/18 06:07 Heart Rate 93 06/21/18 06:07 Respiratory Rate 18 06/21/18 06:07 Blood Pressure 125/92 H 06/21/18 06:07 O2 Sat (%) 97 06/21/18 06:07 O2 Delivery Mode Room Air Allergies/Adverse Reactions: codeine Allergy (Mild, Verified 12/28/17 09:36) Itching Home Medications: Medication Instructions Recorded Levemir 03/22/18 novoLOG 03/22/18 Medical Decision Making - Data Points Laboratory Results: Laboratory Results 06/21/18 06:14 06/21/18 06:14 06/21/18 06/21/18 06/21/18 06:19 06:14 06:14 WBC 18.06 10^3/uL H 10^3/uL (3.80-9.50) RBC 4.60 10^6/uL 10^6/uL (4.40-6.38) Hgb 15.0 g/dL g/dL (13.7-17.5) Hct 42.1 % % (40.0-51.0) MCV 91.5 fL fL (81.5-99.8) MCH 32.6 pg pg (27.9-34.1) MCHC 35.6 g/dL g/dL (32.4-36.7) RDW 11.4 % L % (11.5-15.2) Plt Count 253 10^3/uL 10^3/uL (150-400) MPV 8.8 fL fL (8.7-11.7) Neut % (Auto) 77.8 % H % (39.3-74.2) Lymph % (Auto) 11.8 % L % (15.0-45.0) [place] % (Auto) 9.1 % % (4.5-13.0) Eos % (Auto) 0.0 % L % (0.6-7.6) Baso % (Auto) 0.6 % % (0.3-1.7) Nucleat RBC Rel Count 0.0 % % (0.0-0.2) Absolute Neuts (auto) 14.05 10^3/uL H 10^3/uL (1.70-6.50) Absolute Lymphs (auto) 2.13 10^3/uL 10^3/uL (1.00-3.00) Absolute Monos (auto) 1.64 10^3/uL H 10^3/uL (0.30-0.80) Absolute Eos (auto) 0.00 10^3/uL L 10^3/uL (0.03-0.40) Absolute Basos (auto) 0.11 10^3/uL H 10^3/uL (0.02-0.10) Absolute Nucleated RBC 0.00 10^3/uL 10^3/uL (0-0.01) Immature Gran % 0.7 % % (0.0-1.1) Immature Gran # 0.13 10^3/uL H 10^3/uL (0.00-0.10) RBC/WBC/PLT Morphology TNP Platelet Estimate TNP Sodium 134 mEq/L L mEq/L (135-145) Potassium 4.5 mEq/L mEq/L (3.3-5.0) Chloride 94 mEq/L L mEq/L (97-110) Carbon Dioxide 21 mEq/l L mEq/l (22-31) Anion Gap 19 mEq/L H mEq/L (6-14) BUN 18 mg/dL mg/dL (7-23) Creatinine 0.9 mg/dL mg/dL (0.7-1.3) Estimated GFR > 60 Glucose 268 mg/dL H mg/dL (70-100) Calcium 9.1 mg/dL mg/dL (8.5-10.4) Urine Color YELLOW Urine Appearance CLEAR Urine pH 5.0 (5.0-7.5) Ur Specific [place] 1.027 (1.002-1.030) Urine Protein 1+ H (NEGATIVE) Urine Ketones 2+ H (NEGATIVE) Urine Blood NEGATIVE (NEGATIVE) Urine Nitrate NEGATIVE (NEGATIVE) Urine Bilirubin NEGATIVE (NEGATIVE) Urine Urobilinogen NEGATIVE EU EU (0.2-1.0) Ur Leukocyte Esterase NEGATIVE (NEGATIVE) Urine RBC 1-3 /hpf /hpf (0-3) Urine WBC 1-3 /hpf /hpf (0-3) Ur Epithelial Cells TRACE /lpf /lpf (NONE-1+) Urine Mucus TRACE /lpf /lpf (NONE-1+) Urine Glucose 3+ H (NEGATIVE) Ethyl Alcohol 29 mg/dL H mg/dL (0-10) Medications Given: Discontinued Medications Sodium Chloride (Ns) 1,000 mls @ 0 mls/hr IV EDNOW ONE; Wide Open PRN Reason: Protocol Stop: 06/21/18 06:07 Last Admin: 06/21/18 06:12 Dose: 1,000 mls Sodium Chloride (Ns) 1,000 mls @ 0 mls/hr IV EDNOW ONE; Wide Open PRN Reason: Protocol Stop: 06/21/18 06:07 Last Admin: 06/21/18 06:12 Dose: 1,000 mls Ondansetron HCl (Zofran) 4 mg IVP EDNOW ONE Stop: 06/21/18 06:07 Last Admin: 06/21/18 06:13 Dose: 4 mg Departure - Departure Disposition: Home, Routine, Self-Care Clinical Impression: Dehydration, Hyperglycemia Condition: Good Instructions: Dehydration (ED), Diabetic Hyperglycemia (ED) Additional Instructions: 1. Do not drink alcohol 2. Make sure to take her insulin as appropriate. Referrals: NONE *PRIMARY CARE P,. [Primary Care Provider] - As per Instructions [facility],. [Clinic] - As per Instructions
[2018-06-21 06:09] VITALS: BP 125/92
[2018-06-21 06:25] LABS: PLATELET COUNT 253 10^3/uL (150-400)
[2018-06-21] MEDS ORDERED: CHLORDIAZEPOXIDE 25MG PREPK#6 BTL TAKEHOME ONE (07:36)
== END 2018-06-21 07:40 | disposition home or self-care (01) ==
LOC: EDUNIT#
DX: E10.65 Type 1 diabetes mellitus with hyperglycemia (principal); E86.0 Dehydration; Z59.0 Homelessness
CPT/HCPCS: 96374; G0480; J2405

== ENCOUNTER 2018-09-25 04:22 | Emergency (ER) | payer MEDICAID, OTHER ==
[2018-09-25] MEDS ORDERED: NS 1,000 ML IV ONE (04:27)
[2018-09-25] MEDS ORDERED: ONDANSETRON 4 MG/2 ML VIAL IVP ONE (04:27)
--- NOTE | 2018-09-25 04:38 | EDPHY ---
H & P Time Seen by Provider: 09/25/18 04:27 HPI/ROS: Chief Complaint: Nausea, fatigue HPI: 38-year-old male presenting complaining of nausea and fatigue which she attributes to alcohol withdrawal. Patient states his last drink was yesterday. He had been sober for several months but began drinking last week. Has been drinking vodka. He has been staying in a homeless [facility]. He has had some nausea and vomiting. No history of alcohol withdrawal seizures in the past. Denies any other drug use. No fevers or chills. No cough. No chest pain or shortness of breath. He has had some mild lightheadedness but no fainting. EMS was called. Blood sugar was in the 140s. Patient's vital signs have been normal per EMS. Patient is currently staying in a homeless [facility]. He is asking be transferred to the [facility]. ROS: 10 systems were reviewed and were negative except those elements noted in the HPI. PMH: Alcoholism Social History: No smoking, occasional heavy alcohol, no recreational drug use Family History: non-contributory Physical Exam: Gen: Awake, Alert, No Distress, patient is not tremulous, calm, normal vital signs HEENT: Nose: no rhinorrhea Eyes: PERRLA, EOMI Mouth: Moist mucosa Neck: Supple, no JVD Chest: nontender, lungs clear to auscultation Heart: S1, S2 normal, no murmur Abd: Soft, non-tender, no guarding Back: no CVA tenderness, no midline tenderness Ext: no edema, non-tender Skin: no rash Neuro: CN II-XII intact, Sensation grossly intact, Strength 5/5 in bilateral upper and lower extremities - Personal History Tetanus Vaccine Date: 2013 - Medical/Surgical History Hx Asthma: No Hx Chronic Respiratory Disease: No Hx Diabetes: Yes Hx Cardiac Disease: No Hx Renal Disease: No Hx Cirrhosis: No Hx Alcoholism: Yes Hx HIV/AIDS: No Hx Splenectomy or Spleen Trauma: No Other PMH: neuopathy, anxiety, left toes amputated, ETOH, pancreatitis, diabetes - Social History Smoking Status: Never smoked Constitutional: Initial Vital Signs Temperature (C) 36.8 C 09/25/18 04:29 Heart Rate 79 09/25/18 04:29 Respiratory Rate 20 09/25/18 04:29 Blood Pressure 120/101 H 09/25/18 04:29 O2 Sat (%) 96 09/25/18 04:29 Allergies/Adverse Reactions: codeine Allergy (Mild, Verified 09/25/18 04:29) Itching Home Medications: Medication Instructions Recorded Levemir 03/22/18 novoLOG 03/22/18 Medical Decision Making ED Course/Re-evaluation: A 38-year-old homeless male's presenting complaining of alcohol withdrawal symptoms. He he is not tremulous. He is not tachycardic. He is not hypertensive. I do not see any overt signs of acute alcohol withdrawal. Patient has not had any vomiting here. Abdomen is soft and benign. Laboratory evaluations are consistent with dehydration, otherwise unremarkable. He has been hydrated and given Zofran. Plan will be for discharge with follow-up as an outpatient. Patient is complaining of some difficulty sleeping. Will discharge him with a single Benadryl. - Data Points Laboratory Results: Laboratory Results 09/25/18 04:28 09/25/18 04:28 09/25/18 09/25/18 04:28 04:28 WBC 8.86 10^3/uL 10^3/uL (3.80-9.50) RBC 5.05 10^6/uL 10^6/uL (4.40-6.38) Hgb 16.3 g/dL g/dL (13.7-17.5) Hct 45.9 % % (40.0-51.0) MCV 90.9 fL fL (81.5-99.8) MCH 32.3 pg pg (27.9-34.1) MCHC 35.5 g/dL g/dL (32.4-36.7) RDW 11.8 % % (11.5-15.2) Plt Count 339 10^3/uL 10^3/uL (150-400) MPV 8.7 fL fL (8.7-11.7) Neut % (Auto) 37.1 % L % (39.3-74.2) Lymph % (Auto) 49.1 % H % (15.0-45.0) [place] % (Auto) 10.7 % % (4.5-13.0) Eos % (Auto) 2.3 % % (0.6-7.6) Baso % (Auto) 0.7 % % (0.3-1.7) Nucleat RBC Rel Count 0.0 % % (0.0-0.2) Absolute Neuts (auto) 3.29 10^3/uL 10^3/uL (1.70-6.50) Absolute Lymphs (auto) 4.35 10^3/uL H 10^3/uL (1.00-3.00) Absolute Monos (auto) 0.95 10^3/uL H 10^3/uL (0.30-0.80) Absolute Eos (auto) 0.20 10^3/uL 10^3/uL (0.03-0.40) Absolute Basos (auto) 0.06 10^3/uL 10^3/uL (0.02-0.10) Absolute Nucleated RBC 0.00 10^3/uL 10^3/uL (0-0.01) Immature Gran % 0.1 % % (0.0-1.1) Immature Gran # 0.01 10^3/uL 10^3/uL (0.00-0.10) Sodium 135 mEq/L mEq/L (135-145) Potassium 4.6 mEq/L mEq/L (3.5-5.2) Chloride 105 mEq/L mEq/L (97-110) Carbon Dioxide 17 mEq/l L mEq/l (22-31) Anion Gap 13 mEq/L mEq/L (6-14) BUN 22 mg/dL mg/dL (7-23) Creatinine 1.0 mg/dL mg/dL (0.7-1.3) Estimated GFR > 60 Glucose 127 mg/dL H mg/dL (70-100) Calcium 9.4 mg/dL mg/dL (8.5-10.4) Medications Given: Discontinued Medications Sodium Chloride (Ns) 1,000 mls @ 0 mls/hr IV ONCE ONE; Wide Open PRN Reason: Protocol Stop: 09/25/18 04:28 Last Admin: 09/25/18 04:33 Dose: 1,000 mls Ondansetron HCl (Zofran) 4 mg IVP EDNOW ONE Stop: 09/25/18 04:28 Last Admin: 09/25/18 04:32 Dose: 4 mg Departure - Departure Disposition: Home, Routine, Self-Care Clinical Impression: Vomiting, Dehydration Condition: Good Instructions: Dehydration (ED), Acute Nausea and Vomiting (ED) Additional Instructions: Follow up with [facility] for further evaluation. Referrals: [facility],. [Clinic] - As per Instructions
[2018-09-25 04:39] LABS: PLATELET COUNT 339 10^3/uL (150-400)
[2018-09-25] MEDS ORDERED: diphenhydrAMINE 25 MG CAP PO ONE (05:34)
[2018-09-25 05:46] VITALS: BP 147/97
== END 2018-09-25 05:46 | disposition home or self-care (01) ==
LOC: EDUNIT#
DX: F10.239 Alcohol dependence with withdrawal, unspecified (principal); E86.9 Volume depletion, unspecified; Z59.0 Homelessness
CPT/HCPCS: 96374; J2405

== ENCOUNTER 2018-09-30 12:10 | Emergency (ER) | payer OTHER, MEDICAID ==
--- NOTE | 2018-09-30 13:04 | EDPHY ---
H & P Stated Complaint: Per EMS pt found down by liquor store, BGL 345mg/dl, incont urine Time Seen by Provider: 09/30/18 12:53 HPI/ROS: CHIEF COMPLAINT: Alcohol intoxication Limitations: Altered mental status, unable to provide any clinical history HISTORY OF PRESENT ILLNESS: 38-year-old male with alcoholism and type II diabetes presents with alcohol intoxication. He was found down prior to arrival , intoxicated and soaked in urine. Admits to heavy alcohol use today. Denies trauma or recent illness. He was transported here by EMS. He is on an [facility] hold. REVIEW OF SYSTEMS: Unable to obtain - Personal History Current Tetanus/Diphtheria Vaccine: Unsure Current Tetanus Diphtheria and Acellular Pertussis (TDAP): Unsure Tetanus Vaccine Date: 2013 - Medical/Surgical History Hx Asthma: No Hx Chronic Respiratory Disease: No Hx Diabetes: Yes Hx Cardiac Disease: No Hx Renal Disease: No Hx Cirrhosis: No Hx Alcoholism: Yes Hx HIV/AIDS: No Hx Splenectomy or Spleen Trauma: No Other PMH: neuopathy, anxiety, left toes amputated, ETOH, pancreatitis, diabetes - Social History Smoking Status: Never smoked Alcohol Use: Heavy - Physical Exam Exam: General Appearance: Obtunded, opens eyes to voice, does not follow commands Eyes: Pupils equal and round, 4mm ENT, Mouth: Mucous membranes moist Neck: Normal inspection Respiratory: Lungs are clear to auscultation anteriorly Cardiovascular: Regular rate and rhythm Gastrointestinal: Abdomen is soft and nontender Neurological: Obtunded, moves all extremities Skin: Warm and dry Extremities: Normal inspection Psychiatric: Unable to assess Constitutional: Initial Vital Signs Temperature (C) 36.9 C 09/30/18 12:10 Heart Rate 89 09/30/18 12:10 Respiratory Rate 16 09/30/18 12:10 Blood Pressure 108/77 09/30/18 12:10 O2 Sat (%) 95 09/30/18 12:10 O2 Delivery Mode Room Air Allergies/Adverse Reactions: codeine Allergy (Mild, Verified 09/25/18 04:29) Itching Home Medications: Medication Instructions Recorded Levemir 03/22/18 novoLOG 03/22/18 Medical Decision Making ED Course/Re-evaluation: 1545: ambulates with a steady gait. Tolerating oral fluids well. Denies trauma or recent illness. Not in DKA. Declines diabetic medications. To [facility] via PD. - Data Points Laboratory Results: Laboratory Results 09/30/18 15:15 09/30/18 15:15 09/30/18 09/30/18 15:15 15:15 WBC 12.08 10^3/uL H 10^3/uL (3.80-9.50) RBC 5.39 10^6/uL 10^6/uL (4.40-6.38) Hgb 17.3 g/dL g/dL (13.7-17.5) Hct 49.6 % % (40.0-51.0) MCV 92.0 fL fL (81.5-99.8) MCH 32.1 pg pg (27.9-34.1) MCHC 34.9 g/dL g/dL (32.4-36.7) RDW 11.6 % % (11.5-15.2) Plt Count 336 10^3/uL 10^3/uL (150-400) MPV 8.8 fL fL (8.7-11.7) Neut % (Auto) Not Reported Lymph % (Auto) Not Reported [place] % (Auto) Not Reported Eos % (Auto) Not Reported Baso % (Auto) Not Reported Nucleat RBC Rel Count Not Reported Absolute Neuts (auto) Not Reported Absolute Lymphs (auto) Not Reported Absolute Monos (auto) Not Reported Absolute Eos (auto) Not Reported Absolute Basos (auto) Not Reported Absolute Nucleated RBC Not Reported Immature Gran % Not Reported Seg Neutrophils % 48.0 % % Band Neutrophils % 0.0 % % Lymphocytes % 47.0 % % Monocytes % 4.0 % % Eosinophils % 0.0 % % Basophils % 1.0 % % Metamyelocytes % 0.0 % % Myelocytes % 0.0 % % Promyelocytes % 0.0 % % Blast Cells % 0.0 % % Immature Gran # Not Reported Absolute Seg Neuts 5.80 10^3/uL 10^3/uL (1.70-6.50) Absolute Band Neuts 0.00 10^3/uL 10^3/uL (0.00-0.70) Absolute Lymphocytes 5.68 10^3/uL H 10^3/uL (1.00-3.00) Absolute Monocytes 0.48 10^3/uL 10^3/uL (0.30-0.80) Absolute Eosinophils 0.00 10^3/uL L 10^3/uL (0.03-0.40) Absolute Basophils 0.12 10^3/uL H 10^3/uL (0.02-0.10) Absolute Metamyelocyte 0.00 10^3/mL 10^3/mL (0.00-0.00) Absolute Myelocytes 0.00 10^3/mL 10^3/mL (0.00-0.00) Absolute Promyelocytes 0.00 10^3/uL 10^3/uL (0.00-0.00) Absolute Plasma Cells 0.00 10^3/uL 10^3/uL (0.00-0.00) Absolute Blast Cells 0.00 10^3/uL 10^3/uL (0.00-0.00) Plasma Cells % 0.0 % % Platelet Estimate ADEQUATE (ADEQ) Sodium 140 mEq/L mEq/L (135-145) Potassium 4.6 mEq/L mEq/L (3.5-5.2) Chloride 103 mEq/L mEq/L (97-110) Carbon Dioxide 21 mEq/l L mEq/l (22-31) Anion Gap 16 mEq/L H mEq/L (6-14) BUN 15 mg/dL mg/dL (7-23) Creatinine 0.8 mg/dL mg/dL (0.7-1.3) Estimated GFR > 60 Glucose 224 mg/dL H mg/dL (70-100) Calcium 8.6 mg/dL mg/dL (8.5-10.4) Departure - Departure Disposition: Home, Routine, Self-Care Clinical Impression: Alcoholic intoxication Qualifiers: Complication of substance-induced condition: uncomplicated Qualified Code(s): F10.920 - Alcohol use, unspecified with intoxication, uncomplicated Condition: Good Instructions: Alcohol Intoxication (ED) Referrals: Maggie Lopez PA [Primary Care Provider] - As per Instructions
[2018-09-30 15:31] LABS: PLATELET COUNT 336 10^3/uL (150-400)
[2018-09-30 15:47] VITALS: BP 115/78
== END 2018-09-30 16:00 | disposition home or self-care (01) ==
LOC: EDUNIT#
DX: F10.920 Alcohol use, unspecified with intoxication, uncomplicated (principal); E11.9 Type 2 diabetes mellitus without complications; F41.9 Anxiety disorder, unspecified

== ENCOUNTER 2018-11-10 22:14 | Emergency (ER) | payer MEDICAID, OTHER ==
--- NOTE | 2018-11-10 22:16 | EDPHY ---
H & P Time Seen by Provider: 11/10/18 22:16 HPI/ROS: HPI CHIEF COMPLAINT: [ ] HISTORY OF PRESENT ILLNESS: [Need 4: Location, Duration, Severity, Quality, Context, Timing Modifying Factors, Associated S&S] Past Medical History: Past Surgical History: Social History: Family History: ROS REVIEW OF SYSTEMS: 10 Systems were reviewed and negative with the exception of the elements mentioned in the history of present illness. Exam Constitutional triage nursing summary reviewed, vital signs reviewed, awake/ alert. Eyes normal conjunctivae and sclera, EOMI, PERRLA. HENT normal inspection, atraumatic, moist mucus membranes, no epistaxis, neck supple/ no meningismus, no raccoon eyes. Respiratory clear to auscultation bilaterally, normal breath sounds, no respiratory distress, no wheezing. Cardiovascular rate normal, regular rhythm, no murmur, no edema, distal pulses normal. Gastrointestinal soft, non-tender, no rebound, no guarding, normal bowel sounds, no distension, no pulsatile mass. Genitourinary no CVA tenderness. Musculoskeletal no midline vertebral tenderness, full range of motion, no calf swelling, no tenderness of extremities, no meningismus, good pulses, neurovascularly intact. Skin pink, warm, & dry, no rash, skin atraumatic. Neurologic awake, alert and oriented x 3, AAOx3, moves all 4 extremities equally, motor intact, sensory intact, CN II-XII intact, normal cerebellar, normal vision, normal speech. Psychiatric normal mood/affect. Heme/Lymph/Immune no lymphadenopathy. Differential Diagnosis: Medical Decision Making: Re-evaluation: Source: Patient, EMS - Personal History Tetanus Vaccine Date: 2013 - Medical/Surgical History Hx Asthma: No Hx Chronic Respiratory Disease: No Hx Diabetes: Yes Hx Cardiac Disease: No Hx Renal Disease: No Hx Cirrhosis: No Hx Alcoholism: Yes Hx HIV/AIDS: No Hx Splenectomy or Spleen Trauma: No Other PMH: neuopathy, anxiety, left toes amputated, ETOH, pancreatitis, diabetes - Social History Smoking Status: Never smoked Allergies/Adverse Reactions: codeine Allergy (Mild, Verified 09/25/18 04:29) Itching Home Medications: Medication Instructions Recorded Levemir 03/22/18 novoLOG 03/22/18 Departure - Departure Referrals: NONE *PRIMARY CARE P,. [Primary Care Provider] - As per Instructions
[2018-11-10] MEDS ORDERED: ONDANSETRON 4 MG/2 ML VIAL IVP ONE (22:18)
[2018-11-10] MEDS ORDERED: NS 1,000 ML IV ONE (22:18)
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
[2018-11-10 22:35] LABS: PLATELET COUNT 363 10^3/uL (150-400)
[2018-11-11] MEDS ORDERED: CHLORDIAZEPOXIDE 25MG PREPK#6 BTL TAKEHOME ONE ×2 (00:08→05:32)
[2018-11-11 06:50] VITALS: BP 132/88
== END 2018-11-11 06:49 | disposition home or self-care (01) ==
LOC: EDUNIT#
DX: F10.129 Alcohol abuse with intoxication, unspecified (principal); E10.9 Type 1 diabetes mellitus without complications; E86.9 Volume depletion, unspecified; Z79.4 Long term (current) use of insulin; Z89.432 Acquired absence of left foot; Z59.0 Homelessness
CPT/HCPCS: 96374; G0480; J2405

== ENCOUNTER 2018-11-15 10:14 | Emergency (ER) | payer MEDICAID, OTHER ==
[2018-11-15] MEDS ORDERED: NS 1,000 ML IV ONE (10:19)
[2018-11-15] MEDS ORDERED: ONDANSETRON 4 MG/2 ML VIAL IVP ONE (10:19)
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
[2018-11-15] MEDS ORDERED: CHLORDIAZEPOXIDE 25MG PREPK#6 BTL TAKEHOME ONE ×2 (12:51→12:52)
[2018-11-15 13:03] VITALS: BP 128/78
== END 2018-11-15 13:01 | disposition home or self-care (01) ==
LOC: EDUNIT#
DX: F10.920 Alcohol use, unspecified with intoxication, uncomplicated (principal); E11.9 Type 2 diabetes mellitus without complications; E86.9 Volume depletion, unspecified; Z59.0 Homelessness
CPT/HCPCS: 96374; G0480; J2405

== ENCOUNTER 2018-11-15 18:58 | Emergency (ER) | payer MEDICAID ==
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
[2018-11-15 19:28] VITALS: BP 155/76
== END 2018-11-15 19:11 | disposition home or self-care (01) ==
DX: F10.220 Alcohol dependence with intoxication, uncomplicated (principal); Z59.0 Homelessness

== ENCOUNTER 2018-11-20 00:50 | Emergency (ER) | payer MEDICAID ==
--- NOTE | 2018-11-20 01:00 | EDPHY ---
H & P Time Seen by Provider: 11/20/18 00:59 HPI/ROS: HPI CHIEF COMPLAINT: Alcohol Intoxication HISTORY OF PRESENT ILLNESS: 38-year-old male, presents to the emergency room by EMS for acute alcohol intoxication. Patient is found sleeping outside. No trauma reported. He is a diabetic. Upon arrival he is alert and oriented, slurring his speech, intoxicated with alcohol. Will need to check blood sugar upon arrival. Past Medical History: Diabetes Past Surgical History: No recent surgery Social History: Alcohol intoxication, homeless, daily alcohol use. Family History: Noncontributory ROS REVIEW OF SYSTEMS: 10 Systems were reviewed and negative with the exception of the elements mentioned in the history of present illness. Exam Constitutional Intoxicated, triage nursing summary reviewed, vital signs reviewed, Sleepy, smells of alcohol Eyes normal conjunctivae and sclera, horizontal beating nystagmus consistent acute alcohol intoxication, otherwise pupils equal and react to light HENT normal inspection, atraumatic, moist mucus membranes, no epistaxis, neck supple/ no meningismus, no raccoon eyes. Respiratory clear to auscultation bilaterally, normal breath sounds, no respiratory distress, no wheezing. Cardiovascular rate normal, regular rhythm, no murmur, no edema, distal pulses normal. Gastrointestinal soft, non-tender, no rebound, no guarding, normal bowel sounds, no distension, no pulsatile mass. Genitourinary no CVA tenderness. Musculoskeletal no midline vertebral tenderness, full range of motion, no calf swelling, no tenderness of extremities, no meningismus, good pulses, neurovascularly intact. Skin pink, warm, & dry, no rash, skin atraumatic. Neurologic sleepy, intoxicated with alcohol,, alert and oriented x 3, AAOx3, moves all 4 extremities equally, motor intact, sensory intact, CN II-XII intact , , normal vision, normal speech. Psychiatric normal mood/affect. Heme/Lymph/Immune no lymphadenopathy. Differential Diagnosis: Includes but is not limited to in a particular order acute alcohol intoxication, alcohol abuse, dehydration, electrolyte abnormality , nausea vomiting from acute alcohol intoxication Medical Decision Making: Plan for this patient fingerstick blood glucose, breath alcohol and re-evaluate Re-evaluation: Serum alcohol level 338 Fingerstick glucose glucose: 146. 5:44 a.m. patient resting comfortably no acute distress, ambulated well throughout the emergency without any difficulty. Clinically sober. Stable vital signs and safe for discharge Source: Patient, EMS - Personal History Tetanus Vaccine Date: 2013 - Medical/Surgical History Hx Asthma: No Hx Chronic Respiratory Disease: No Hx Diabetes: Yes Hx Cardiac Disease: No Hx Renal Disease: No Hx Cirrhosis: No Hx Alcoholism: Yes Hx HIV/AIDS: No Hx Splenectomy or Spleen Trauma: No Other PMH: neuopathy, anxiety, left toes amputated, ETOH, pancreatitis, diabetes - Social History Smoking Status: Never smoked Constitutional: Initial Vital Signs Temperature (C) 36.4 C 11/20/18 00:57 Heart Rate 96 11/20/18 00:57 Respiratory Rate 18 11/20/18 00:57 Blood Pressure 135/98 H 11/20/18 00:57 O2 Sat (%) 95 11/20/18 00:57 O2 Delivery Mode Room Air O2 (L/minute) 2 Allergies/Adverse Reactions: codeine Allergy (Mild, Verified 09/25/18 04:29) Itching Home Medications: Medication Instructions Recorded Levemir 03/22/18 novoLOG 03/22/18 Medical Decision Making - Data Points Laboratory Results: 11/20/18 01:07 POC Glucose 146 mg/dL H mg/dL (70-100) Point of Care Test Results: Chemistry 11/20/18 01:07 POC Glucose 146 mg/dL H mg/dL (70-100) Departure - Departure Disposition: Home, Routine, Self-Care Clinical Impression: Alcoholic intoxication Qualifiers: Complication of substance-induced condition: uncomplicated Qualified Code(s): F10.920 - Alcohol use, unspecified with intoxication, uncomplicated Condition: Good Instructions: Alcohol Intoxication (ED), Abuse of Alcohol (ED) Referrals: NONE *PRIMARY CARE P,. [Primary Care Provider] - As per Instructions
[2018-11-20] MEDS ORDERED: CHLORDIAZEPOXIDE 25MG PREPK#6 BTL TAKEHOME ONE (06:00)
[2018-11-20 06:09] VITALS: BP 128/68
== END 2018-11-20 06:58 | disposition home or self-care (01) ==
LOC: EDUNIT#
DX: F10.920 Alcohol use, unspecified with intoxication, uncomplicated (principal); E11.9 Type 2 diabetes mellitus without complications; Z59.0 Homelessness

== ENCOUNTER 2018-12-20 06:42 | Emergency (ER) | payer MEDICAID ==
[2018-12-20] MEDS ORDERED: LORazepam 1 MG TAB PO ONE (06:57)
--- NOTE | 2018-12-20 06:58 | EDPHY ---
H & P Stated Complaint: ETOH, anxiety attack, took 8 bendryl Time Seen by Provider: 12/20/18 06:58 - Personal History Current Tetanus Diphtheria and Acellular Pertussis (TDAP): Yes Tetanus Vaccine Date: 2013 - Medical/Surgical History Hx Asthma: No Hx Chronic Respiratory Disease: No Hx Diabetes: Yes Hx Cardiac Disease: No Hx Renal Disease: No Hx Cirrhosis: No Hx Alcoholism: Yes Hx HIV/AIDS: No Hx Splenectomy or Spleen Trauma: No Other PMH: neuopathy, anxiety, left toes amputated, ETOH, pancreatitis, diabetes - Social History Smoking Status: Never smoked Constitutional: Initial Vital Signs Temperature (C) 36.7 C 12/20/18 06:40 Heart Rate 93 12/20/18 06:40 Respiratory Rate 16 12/20/18 06:40 Blood Pressure 162/107 H 12/20/18 06:40 O2 Sat (%) 97 12/20/18 06:40 O2 Delivery Mode Room Air Allergies/Adverse Reactions: codeine Allergy (Mild, Verified 12/20/18 06:44) Itching Home Medications: Medication Instructions Recorded Levemir 03/22/18 novoLOG 03/22/18 Medical Decision Making ED Course/Re-evaluation: CHIEF COMPLAINT: Panic attack HISTORY OF PRESENT ILLNESS: Patient is a 37-year-old type 2 diabetic alcoholic arriving via EMS after he became anxious at the [facility]. The patient has been seen in this ER numerous times for alcohol withdrawal and anxiety. Last night he was at the [facility] withdrawing from alcohol. He was unable to sleep due to the withdrawal and took 8 Benadryl. This morning he felt anxious and had a racing heart. He is also requesting a drug screen. He denies trauma. No recent fevers. He has not received any benzodiazepines. No fever, headache, body aches, lightheadedness, chest pain, heart palpitations, shortness of breath, cough, abdominal pain, urinary or bowel complaints, numbness, paresthesias. REVIEW OF SYSTEMS: A 10 point review of systems was performed and is negative with the exception of the elements mentioned in the history of present illness. PHYSICAL EXAM: HR, BP, O2 Sat, RR. Temp noted General Appearance: Alert, well hydrated, appropriate, and non-toxic appearing. Head: Atraumatic without scalp tenderness or obvious injury Eyes: Pupils equal, round, reactive to light and accommodation, EOMI, no trauma , no injection. Ears: Clear bilaterally, no perforation, normal landmarks Nose: Atraumatic, no rhinorrhea, clear. Throat: There is no erythema or exudates, no lesions, normal tonsils, mucus membranes moist. Neck: Supple, 2+ carotid upstroke, nontender, no lymphadenopathy. Respiratory: No retractions, no distress, no wheezes, and no accessory muscle use. Lungs are clear to auscultation bilaterally. Cardiovascular: Regular rate and rhythm, no murmurs, rubs, or gallops. Bilateral carotid, radial, dorsalis pedis, and posterior tibial pulses intact. Good capillary refill all extremities. Gastrointestinal: Abdomen is soft, nontender, non-distended, no masses, no rebound, no guarding, no peritoneal signs. Musculoskeletal: Normal active ROM of all extremities, atraumatic. Neurological: Alert, appropriate, and interactive. The patient has normal DTRs and non-focal cranial nerves, motor, sensory, and cerebellar exam. Skin: No rashes, good turgor, no nodules on palpation. Past medical history: neuropathy, anxiety, ETOH, pancreatitis, diabetes Past surgical history: left toes amputated Family history: Denies Social history: Single, not employed, lives in [place] DIAGNOSTICS/PROCEDURES/CRITICAL CARE TIME: Not indicated. DIFFERENTIAL DIAGNOSIS: The differential diagnosis for the patient's anxiety included but was not limited to functional and major depression, situational depression, medication side effect, drugs, and alcohol abuse. MEDICAL DECISION MAKING: Patient is a 37-year-old type 2 diabetic alcoholic arriving via EMS after he became anxious at the [facility]. The patient has been seen in this ER numerous times for alcohol withdrawal and anxiety. Last night he was at the [facility] withdrawing from alcohol. He was unable to sleep due to the withdrawal and took 8 Benadryl. This morning he felt anxious and had racing heart. On exam he appears anxious, but is otherwise normal. 2mg PO Ativan administered. 0830: Reassessed patient, he is feeling much better. He does not want to be discharged to the [facility]. Return precautions provided; patient is comfortable with this plan. - Data Points Medications Given: Discontinued Medications Lorazepam (Ativan) 2 mg PO EDNOW ONE Stop: 12/20/18 06:58 Last Admin: 12/20/18 07:04 Dose: 2 mg Departure - Departure Disposition: Home, Routine, Self-Care Clinical Impression: Panic attack, Anxiety Alcohol withdrawal Qualifiers: Complication of substance-induced condition: uncomplicated Qualified Code(s): F10.230 - Alcohol dependence with withdrawal, uncomplicated Condition: Good Instructions: Alcohol Withdrawal (ED), Anxiety (ED), Panic Attack (ED) Additional Instructions: 1. Please refrain from abusing alcohol. 2. Return to the emergency department immediately for fever, vomiting, confusion , headache, abdominal pain or other worsening of condition. 3. Followup with your primary care physician within 72 hours for reevaluation. Referrals: [facility],. [Clinic] - As per Instructions Report Scribed for: Malik Clinton Report Scribed by: Ember Youngblood Date of Report: 12/20/18 Time of Report: 06:58
[2018-12-20] MEDS ORDERED: CHLORDIAZEPOXIDE 25MG PREPK#6 BTL TAKEHOME ONE (08:29)
[2018-12-20 08:54] VITALS: BP 154/86
== END 2018-12-20 08:56 | disposition home or self-care (01) ==
LOC: EDUNIT#
DX: F41.0 Panic disorder [episodic paroxysmal anxiety] (principal); F10.230 Alcohol dependence with withdrawal, uncomplicated; E11.9 Type 2 diabetes mellitus without complications; G62.9 Polyneuropathy, unspecified

== ENCOUNTER 2018-12-21 00:56 | Emergency (ER) | payer MEDICAID ==
--- NOTE | 2018-12-21 01:06 | EDPHY ---
H & P Time Seen by Provider: 12/21/18 01:10 HPI/ROS: Chief complaint: Alcohol intoxication, medical clearance for snf History of present illness: This is a 38-year-old male who has been seen in this emergency department multiple times for alcohol intoxication who is brought to the emergency department for medical clearance to go to snf. Patient was apparently wandering around someone else's apartment this evening. Police were contacted. He was brought here prior to being taken to snf. Patient states he does not know what he was doing this evening. He does admit to drinking alcohol. He states he feels fine at this time. He has a scratch on his nose, he believes he scratched it with his finger. Denies any other complaints. He was seen earlier today in this emergency department. Review of systems: A 10 point review of systems was obtained and other than described above was negative. - Personal History Tetanus Vaccine Date: 2013 - Medical/Surgical History Hx Asthma: No Hx Chronic Respiratory Disease: No Hx Diabetes: Yes Hx Cardiac Disease: No Hx Renal Disease: No Hx Cirrhosis: No Hx Alcoholism: Yes Hx HIV/AIDS: No Hx Splenectomy or Spleen Trauma: No Other PMH: neuopathy, anxiety, left toes amputated, ETOH, pancreatitis, diabetes - Social History Smoking Status: Never smoked - Physical Exam Exam: General Appearance: Alert, nontoxic Eyes: PERRLA. No Rangel sign. ENT: No hemotympanum. No Rangel sign. No bloody nose. Respiratory: Lungs clear to auscultation bilaterally. Cardiac: Regular rate and rhythm. Gastrointestinal: Soft, nondistended, nontender. Neurological: Alert. Strength and sensation intact. Ambulating well on his own. Skin: Patient has a scratch on his nose, no surrounding contusion, no other injuries to his face. There is blood under his fingernail. Does believe he scratched his nose with his finger. Otherwise a head-to-toe examination does not reveal other lesions consistent with trauma. Musculoskeletal: The face is nontender without crepitus or bony deformity. The spine is nontender to palpation along its entire length on crepitus or bony deformity. Chest wall intact palpation without crepitus or subcutaneous air. Pelvis stable. Moving all extremities well. DIFFERENTIAL DIAGNOSIS: After history and physical exam differential diagnosis was considered for trauma in an auto accident including intracranial, spinal, intrathoracic and intra-abdominal injuries. Constitutional: Initial Vital Signs Temperature (C) 36.7 C 12/21/18 01:06 Heart Rate 95 12/21/18 01:06 Respiratory Rate 18 12/21/18 01:06 Blood Pressure 134/78 H 12/21/18 01:06 O2 Sat (%) 97 12/21/18 01:06 O2 Delivery Mode Room Air Allergies/Adverse Reactions: codeine Allergy (Mild, Verified 12/20/18 06:44) Itching Home Medications: Medication Instructions Recorded Levemir 03/22/18 novoLOG 03/22/18 Medical Decision Making ED Course/Re-evaluation: Patient was discussed with my secondary supervising physician Dr. Fidencio Pearson. Patient presents for medical clearance to go to snf. He reports using alcohol this evening. He has no complaints to me. He has a scratch on his nose that appears to have come from his fingernails as he has blood under the nail. No further evidence. Patient will be discharged in the care of the police. Differential Diagnosis: Included but not limited to alcohol intoxication, polysubstance abuse, doubtful significant trauma Departure - Departure Disposition: Law Enforcement/Court/Residential Clinical Impression: Alcoholic intoxication Qualifiers: Complication of substance-induced condition: uncomplicated Qualified Code(s): F10.920 - Alcohol use, unspecified with intoxication, uncomplicated Condition: Good Instructions: Polysubstance Abuse (ED) Additional Instructions: Medically cleared for snf Follow-up with a primary care doctor when you are discharged from snf Referrals: NONE *PRIMARY CARE P,. [Primary Care Provider] - As per Instructions [facility],. [Clinic] - As per Instructions
[2018-12-21 01:07] VITALS: BP 134/78
== END 2018-12-21 01:14 ==
LOC: EDUNIT#
DX: F10.920 Alcohol use, unspecified with intoxication, uncomplicated (principal)

== ENCOUNTER 2018-12-25 00:31 | Emergency (ER) | payer MEDICAID ==
[2018-12-25] MEDS ORDERED: NS 1,000 ML IV ONE ×2 (01:49)
--- NOTE | 2018-12-25 01:52 | EDPHY ---
H & P Stated Complaint: ETOH Time Seen by Provider: 12/25/18 01:44 HPI/ROS: HPI The patient presents with alcohol intoxication, found behind a dumpster by bystanders earlier in the evening. 911 was called. The patient admitted to drinking several alcoholic drinks. His blood glucose in the field was normal. He was unable to stand with steady gait. [facility]. He was seen 4 days ago for alcohol intoxication and medical clearance.. REVIEW OF SYSTEMS 10 systems were reviewed and negative with the exception of the elements mentioned in the history of present illness. PMHx: Diabetes on insulin, history of pancreatitis, history of diabetic neuropathy Soc Hx: Homeless, longstanding history of alcohol abuse with multiple ED visits. PHYSICAL General Appearance: Obviously intoxicated Head: There is an abrasion to his nasal bridge which has overlying hyper granulation tissue Eyes: Pupils equal and round no pallor or injection ENT, Mouth: Mucous membranes moist Respiratory: There are no retractions, lungs are clear to auscultation Cardiovascular: Regular rate and rhythm Gastrointestinal: Abdomen is soft and non-tender, no masses, bowel sounds normal Neurological: A&O, moves all extremities Skin: Warm and dry, no rashes Musculoskeletal: Neck is supple non tender Extremities: symmetrical, full range of motion Psychiatric: Patient is not agitated Source: Patient, EMS, Old records Exam Limitations: Intoxication - Personal History Current Tetanus Diphtheria and Acellular Pertussis (TDAP): Unsure Tetanus Vaccine Date: 2013 - Medical/Surgical History Hx Asthma: No Hx Chronic Respiratory Disease: No Hx Diabetes: Yes Hx Cardiac Disease: No Hx Renal Disease: No Hx Cirrhosis: No Hx Alcoholism: Yes Hx HIV/AIDS: No Hx Splenectomy or Spleen Trauma: No Other PMH: neuopathy, anxiety, left toes amputated, ETOH, pancreatitis, diabetes - Social History Smoking Status: Never smoked Constitutional: Initial Vital Signs Temperature (C) 36.4 C 12/25/18 00:31 Heart Rate 97 12/25/18 00:31 Respiratory Rate 16 12/25/18 00:31 Blood Pressure 151/95 H 12/25/18 00:31 O2 Sat (%) 95 12/25/18 00:31 O2 Delivery Mode Room Air O2 (L/minute) 2 Allergies/Adverse Reactions: codeine Allergy (Mild, Verified 12/20/18 06:44) Itching Home Medications: Medication Instructions Recorded Levemir 03/22/18 novoLOG 03/22/18 Medical Decision Making Differential Diagnosis: 38-year-old homeless male with diabetes on insulin, longstanding history of alcohol abuse, presents brought in by ambulance after being found down outside of a dumpster. He does have an abrasion to his nasal bridge which appears old. He does not have any other external signs of trauma. His vital signs are normal. He is quite intoxicated at this time though can't answer basic questions. Because of his history of diabetes metabolic panel was checked and the patient does have an anion gap. In his case blood glucose is 124, DKA is unlikely. He could have alcoholic ketoacidosis. I will give him fluid boluses for this. Patient received fluid boluses and repeat labs showed anion gap had closed. Blood glucose remained normal. He was able to walk with a steady gait and was clinically sober thus was discharged to the [facility]. - Data Points Laboratory Results: Laboratory Results 12/25/18 05:00 12/25/18 12/25/18 05:00 01:18 Sodium 145 mEq/L mEq/L 147 mEq/L H mEq/L (135-145) (135-145) Potassium 4.3 mEq/L mEq/L 5.4 mEq/L H mEq/L (3.5-5.2) (3.5-5.2) Chloride 108 mEq/L mEq/L 106 mEq/L mEq/L (97-110) (97-110) Carbon Dioxide 18 mEq/l L mEq/l 17 mEq/l L mEq/l (22-31) (22-31) Anion Gap 19 mEq/L H mEq/L 24 mEq/L H mEq/L (6-14) (6-14) BUN 16 mg/dL mg/dL 17 mg/dL mg/dL (7-23) (7-23) Creatinine 0.7 mg/dL mg/dL 0.7 mg/dL mg/dL (0.7-1.3) (0.7-1.3) Estimated GFR > 60 > 60 Glucose 102 mg/dL H mg/dL 121 mg/dL H mg/dL (70-100) (70-100) Calcium 7.9 mg/dL L mg/dL 9.2 mg/dL mg/dL (8.5-10.4) (8.5-10.4) Ethyl Alcohol 407 mg/dL H* mg/dL (0-10) Medications Given: Discontinued Medications Sodium Chloride (Ns) 1,000 mls @ 0 mls/hr IV EDNOW ONE; Wide Open PRN Reason: Protocol Stop: 12/25/18 01:50 Last Admin: 12/25/18 01:52 Dose: 1,000 mls Sodium Chloride (Ns) 1,000 mls @ 0 mls/hr IV EDNOW ONE; Wide Open PRN Reason: Protocol Stop: 12/25/18 01:50 Last Admin: 12/25/18 01:52 Dose: 1,000 mls Departure - Departure Disposition: Home, Routine, Self-Care Clinical Impression: Alcoholic ketoacidosis, Diabetes mellitus, insulin dependent (IDDM), controlled Alcoholic intoxication Qualifiers: Complication of substance-induced condition: with delirium Qualified Code(s): F10.921 - Alcohol use, unspecified with intoxication delirium Condition: Good Instructions: Alcohol Intoxication (ED) Additional Instructions: Please return to the emergency department if your worse in any way. Referrals: [facility],. [Clinic] - As per Instructions
[2018-12-25 05:57] VITALS: BP 115/67
== END 2018-12-25 07:08 | disposition home or self-care (01) ==
LOC: EDUNIT#
DX: F10.129 Alcohol abuse with intoxication, unspecified (principal); E86.9 Volume depletion, unspecified; E11.9 Type 2 diabetes mellitus without complications; Z79.4 Long term (current) use of insulin; Z59.0 Homelessness
CPT/HCPCS: G0480